=== PATIENT | female | born 1985 | race Caucasian/White ===

== ENCOUNTER 2018-05-07 11:58 | Observation (INO) ==
[2018-05-07] MEDS ORDERED: 0.9 % Sodium Chloride 1,000 ML IVC ONE ×2 (12:24→15:06)
--- NOTE | 2018-05-07 12:26 | Emergency Department Note ---
Disposition Clinical Impression: Syncope Qualifiers: Syncope type: unspecified Qualified Code(s): R55 - Syncope and collapse Disposition: Admitted As Inpatient Condition: Fair Referrals: Daiana Bower MD [Primary Care Provider] - Forms: ED Satisfaction Letter Syncope HPI - General Chief Complaint: ED Syncope Stated Complaint: Syncope Time Seen by Provider: 05/07/18 12:02 Source: EMS Limitations: no limitations Nursing Notes Reviewed: Yes Vital Signs Reviewed: Yes - History of Present Illness HPI Narrative: 32-year-old female presents emergency department after passing out at work. Patient states that she is feeling lightheaded today. Patient reports palpitations prior to the accident. Patient states that she was not standing up when it happened, but she was moving back and forth. Patient denies any fevers, chills, nausea, vomiting, cough, hemoptysis, sputum production. She does her port having symptoms of urinary frequency, urgency, dysuria, suprapubic abdominal pain. Patient states that she did lose consciousness but did not hit her head. Patient denies any slurred speech, numbness tingling, paresthesias of her upper and lower extremities. Patient denies any unilateral leg swelling, recent travel, history of blood clots, chest pain, chest pressure , chest tightness. Patient still feeling a little lightheaded now. Denies it feeling as if the room is spinning - Related Data Home Medications Medication Instructions Recorded Confirmed Bupropion HCl [Wellbutrin Xl] 300 mg PO DAILY 12/28/15 05/07/18 Aripiprazole [Abilify] 5 mg PO DAILY 05/07/18 05/07/18 Citalopram Hydrobromide 40 mg PO DAILY 05/07/18 05/07/18 [Citalopram HBr] Allergies Allergy/AdvReac Type Severity Reaction Status Date / Time levofloxacin [From Levaquin] AdvReac Hives Verified 05/07/18 16:06 All systems ED: reviewed and negative except as stated. Review of Systems: As Per HPI Constitutional: Denies: fever ENT ED: Denies: congestion Cardiovascular: Reports: syncope. Denies: chest pain, palpitations, orthopnea, edema Respiratory: Denies: cough, dyspnea, hemoptysis, sputum production Gastrointestinal: Reports: abdominal pain. Denies: nausea, vomiting Genitourinary: Reports: urgency, dysuria, frequency. Denies: hematuria Musculoskeletal: Denies: back pain Integumentary: Denies: rash, abrasion Neurological: Reports: weakness. 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 Absent: scleral icterus, conjunctival injection - ENT ENT exam: normal oropharynx, mucous membranes moist - Neck Neck exam: Present: full ROM, trachea midline - Chest Chest inspection: Present: normal inspection, symmetric chest wall rise - Respiratory Respiratory exam: Present: normal lung sounds bilaterally. Absent: respiratory distress - Cardiovascular Cardiovascular exam: Present: regular rate, normal rhythm, normal heart sounds - Abdominal Exam Abdominal exam: Present: soft, tenderness. Absent: distention, guarding, rebound, rigidity Abdominal tenderness: Present: suprapubic, mild - Extremities Exam Extremities exam: Present: normal capillary refill. Absent: calf tenderness - Back Exam Back exam: Present: full ROM. Absent: CVA tenderness (R), CVA tenderness (L) - Neurological Exam Neurological exam: Present: alert, oriented X3, CN II-XII intact, other (GCS 15 , normal finger to nose, no pronator drift.) - Psychiatric Psychiatric exam: Present: normal affect, normal mood - Skin Skin exam: Present: warm, dry, intact Course Vital Signs Temperature 98.4 F 05/07/18 12:01 Pulse Rate 82 05/07/18 12:01 Respiratory Rate 18 05/07/18 12:01 Blood Pressure 131/89 05/07/18 12:01 O2 Sat by Pulse Oximetry 97 05/07/18 12:01 Temperature 98.4 F 05/07/18 12:01 Pulse Rate 84 05/07/18 15:38 Respiratory Rate 18 05/07/18 15:38 Blood Pressure 128/78 05/07/18 15:38 O2 Sat by Pulse Oximetry 98 05/07/18 15:38 Oxygen Delivery Oxygen Delivery Room Air Syncope - [facility] Narrative Medical decision making narrative: 32-year-old female presents to the emergency department with concern for having a few sigmoid episodes. Patient still feeling lightheaded now. Reporting suprapubic tenderness upon physical exam's palpation as well as having urinary frequency, urgency, dysuria. Electrocardiogram is obtained and reveal any evidence of ischemia, hypertrophic myopathy, Kfxia-Efqjlsovx-Uypkq syndrome, Brugada syndrome, or any other arrhythmia. We will also obtain a chest x-ray, urinalysis, urine . Patient will be given a liter of fluids here as she is still complaining of having some symptoms. Patient was still complaining of having lightheadedness after administration of 1 L of fluids. We did a repeat electrocardiogram and she was reporting some more palpitations and chest tightness. Repeat EKG did not reveal any evidence of arrhythmia or ischemic changes that was noted in previous electrocardiogram. There were both the same. Was also given meclizine as well as another liter of fluids despite patient not having vertiginous like symptoms. Patient did not respond to this as well. Patient still having issues with sitting up and feeling lightheadedness. Patient reports needing a Holter monitor. Patient agreed to be excepted to the hospital for further observation as patient is unable to ambulate safely here in the emergency department. I spoke with the hospitalist who agreed to accept the patient for admission. I spoke with family patient at bedside they also agree with the plan. Patient hemodynamically stable at time of admission to the hospital. There was discussion of CT of head with both the patient, family member, hospitalist. This is not seen like a stroke. There are no focal neurologic abnormalities. Patient does not have continuous vertiginous-like symptoms that would be consistent with stroke. GCS 15. Vital Signs Temperature 98.4 F 05/07/18 12:01 Pulse Rate 82 05/07/18 12:01 Respiratory Rate 18 05/07/18 12:01 Blood Pressure 131/89 05/07/18 12:01 O2 Sat by Pulse Oximetry 97 05/07/18 12:01 Temperature 98.4 F 05/07/18 12:01 Pulse Rate 84 05/07/18 15:38 Respiratory Rate 18 05/07/18 15:38 Blood Pressure 128/78 05/07/18 15:38 O2 Sat by Pulse Oximetry 98 05/07/18 15:38 Oxygen Delivery Oxygen Delivery Room Air - Lab Data Lab Results 05/07/18 05/07/18 05/07/18 Range/Units 12:25 12:48 12:48 POC Glucose 81 (70-99) mg/dL Urine Color Yellow (Yellow) Urine Clarity Clear (Clear) Urine pH 7.0 (5.0-8.0) pH Units Ur Specific Anthony 1.018 (1.010-1.025) Urine Protein Negative (Neg-Trace) mg/dL Urine Glucose (UA) Normal (Normal) mg/dL Urine Ketones Negative (Negative) mg/dL Urine Blood Negative (Negative) Urine Nitrite Negative (Negative) Urine Bilirubin Negative (Negative) Urine Urobilinogen Normal (Normal) mg/dL Ur Leukocyte Esterase Negative (Negative) Ur Culture Indicated? NO (NO) Urine Test Negative (Negative) - EKG Data EKG attestation: Yes I reviewed and interpreted this EKG. EKG results narrative: 12:21 Ventricular rate 73 bpm, ND interval 143 ms, QRS duration 101 ms, QT 377 ms, QTC 403 ms, normal axis. Sinus rhythm with a ventricular rate 73 bpm. There is no evidence of hypertrophic cardiomyopathy, Brugada syndrome, naproxen White syndrome, or any other sinus arrhythmia. Signs of any ischemic ST changes. EKG #2 13:58 Ventricular rate 75 bpm, ND interval 157 ms, QRS duration 101, QT 400 ms, QTC 429 ms, normal axis. Sinus rhythm with a ventricular rate 75 bpm. There is no evidence of any ischemic ST changes on this later cardio gram. No evidence of Parkinson White syndrome, Brugada syndrome, hypertrophic Cardizem myopathy. No other arrhythmia. This EKG was compared to previous study performed today.
[2018-05-07 12:57] LABS: Bilirubin,Urine Negative (Negative); Blood,Urine Negative (Negative); Clarity,Urine Clear (Clear); Color,Urine Yellow (Yellow); Glucose,Urine (UA) Normal (Normal); Ketones,Urine Negative (Negative); Leukocyte Esterase,Urine Negative (Negative); Nitrite,Urine Negative (Negative); Protein,Urine Negative (Neg-Trace); Specific Gravity,Urine 1.018 (1.010-1.025); Urobilinogen,Urine Normal (Normal)
--- NOTE | 2018-05-07 17:16 | Emergency Department Note ---
Disposition Clinical Impression: Syncope Qualifiers: Syncope type: unspecified Qualified Code(s): R55 - Syncope and collapse Disposition: Admitted As Inpatient Condition: Fair General Adult HPI - General Chief complaint: ED Syncope Stated complaint: Syncope Time Seen by Provider: 05/07/18 12:02 Source: EMS Limitations: no limitations - History of Present Illness Pain Scale: 0 - Related Data Home Medications Medication Instructions Recorded Confirmed Bupropion HCl [Wellbutrin Xl] 300 mg PO DAILY 12/28/15 05/07/18 Aripiprazole [Abilify] 5 mg PO DAILY 05/07/18 05/07/18 Citalopram Hydrobromide 40 mg PO DAILY 05/07/18 05/07/18 [Citalopram HBr] Allergies Allergy/AdvReac Type Severity Reaction Status Date / Time levofloxacin [From Levaquin] AdvReac Hives Verified 05/07/18 16:06 Constitutional: Denies: fever ENT ED: Denies: congestion Cardiovascular: Reports: syncope. Denies: chest pain, palpitations, orthopnea, edema Respiratory: Denies: cough, dyspnea, hemoptysis, sputum production Gastrointestinal: Reports: abdominal pain. Denies: nausea, vomiting Genitourinary: Reports: urgency, dysuria, frequency. Denies: hematuria Musculoskeletal: Denies: back pain Integumentary: Denies: rash, abrasion Neurological: Reports: weakness. 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 - Social History Smoking Status: Never smoker Smokeless Tobacco Status: No Alcohol use: Reports: none Drug use: Reports: none Physical Exam - General Limitations: no limitations General appearance: alert, in no apparent distress Course Vital Signs Temperature 98.4 F 05/07/18 12:01 Pulse Rate 82 05/07/18 12:01 Respiratory Rate 18 05/07/18 12:01 Blood Pressure 131/89 05/07/18 12:01 O2 Sat by Pulse Oximetry 97 05/07/18 12:01 Temperature 98.2 F 05/07/18 17:22 Pulse Rate 78 05/07/18 17:22 Respiratory Rate 18 05/07/18 17:22 Blood Pressure 117/75 05/07/18 17:22 O2 Sat by Pulse Oximetry 95 05/07/18 17:22 Oxygen Delivery Oxygen Delivery Room Air Medical Decision Making - Lab Data Lab Results 05/07/18 05/07/18 05/07/18 Range/Units 12:25 12:48 12:48 POC Glucose 81 (70-99) mg/dL Urine Color Yellow (Yellow) Urine Clarity Clear (Clear) Urine pH 7.0 (5.0-8.0) pH Units Ur Specific [place] 1.018 (1.010-1.025) Urine Protein Negative (Neg-Trace) mg/dL Urine Glucose (UA) Normal (Normal) mg/dL Urine Ketones Negative (Negative) mg/dL Urine Blood Negative (Negative) Urine Nitrite Negative (Negative) Urine Bilirubin Negative (Negative) Urine Urobilinogen Normal (Normal) mg/dL Ur Leukocyte Esterase Negative (Negative) Ur Culture Indicated? NO (NO) Urine Test Negative (Negative) Attestation Statement - Attestation Attestation: I examined this patient and my medical decision-making was reviewed with the Resident Physician, Dr. Lamb. I agree with the documented findings, disposition and treatment plan as described except to the extent set forth below. Patient is a 32-year-old white female who presents to the emergency department brought from her place of employment after she sustained a syncopal episode. Patient states she has had prior episodes to in the past year with no formal extensive cardiac evaluation following them as they seemed to be consistent with vasovagal episodes. Patient woke up this morning feeling fine she has not had any recent illness, no recent fluid loss, asymptomatic and feeling fine when she went to work today. Patient states that she was sitting in a chair she just began feeling lightheaded and foggy mild nausea and this continued to gradually worsen and then she had a syncopal episode that was witnessed by her coworkers. Patient was helped to the floor there is no incident of trauma or injuries related to the syncope. Patient states she attempts to sit up quickly upon waking up and has sustained a second episode. Arrival to the ED patient is awake alert and oriented 4 GCS equals 15 and no focal neurologic deficits with clear speech. Patient denies any headaches, no chest pains pressure or heaviness, no palpitations, no shortness of breath, no nausea vomiting, no diaphoresis, no other associated symptoms. I agree with patient's physical exam findings as documented. Patient's EKG was unremarkable with no acute ischemia are concerning findings. Vital signs are stable. Patient received IV fluids in the emergency department and urinalysis urine. Was negative for any infection and no . Chest x-rays unremarkable. She had serial EKGs while in the ED with no changes and no recurrent symptoms. Each time we attempted to get the patient up to ambulate she reports being unable to due to severe recurrence of lightheadedness. Patient denies any room spinning sensation no worsening with head turning, no headaches or neurologic symptoms. Due to patient being unable to ambulate we discussed the case with hospitalist who accepted patient for admission for further evaluation and management of syncope with recurrent lightheadedness and inability to ambulate.
[2018-05-07] MEDS ORDERED: Naloxone 0.4 MG/ML INJ IVP PRN (17:46)
[2018-05-07 18:38] LABS: Magnesium 1.9 mg/dL (1.6-2.6); Phosphorous 2.6 mg/dL (2.7-4.5)
--- NOTE | 2018-05-07 18:40 | Internal Med History&Physical ---
Date of Encounter: 05/07/18 Time of Encounter: 17:55 Internal Medicine - H&P: HPI Chief complaint: Dizzenes Admitted From: Emergency Dept History of present illness: Ms. Beaver is a 32 year old female with past medical history of syncopal episode in the past. Patient stated that about 1 year ago she had episode of palpitation followed by syncopal episode, this had happened also 2 months ago. Patient denies any chest pain but she stated she had some labored breathing when she had palpitation. Today she was in her normal state of health she went to work, patient she was feeling so dizzy, she was trying to sit down when had episode of palpitation and she passed out she does not know for how long she passed out. Patient stated she wake up she was treated confused since she passed out again she wake up again and she passed out for third time. Patient denies any motor or sensory changes, patient denies any visual changes, patient is complaining of feeling so dizzy especially with standing or moving her head. Patient denies any seizure, no witnessed seizure by coworker. Currently patient continued to feel dizzy was moving her head or standing from sitting position. Her systolic blood pressure was at the low 90, heart rate was up to 120. Patient received 2 L fluid at emergency room. Patient denies any chest pain or shortness of breath now, patient denies any orthopnea or proximal nocturnal dyspnea. Patient denies any recent diarrhea or upper respiratory infection, patient stated she cut back on salt dramatically lately. Past Med Surg Social Fam HX - Past Medical History Source: patient Medical history: other (History of syncope) Additional medical history: heart palpiatations Psychiatric history: anxiety, depression, other - Past Surgical History Additional surgical history: D&C. Tonsils - Social History Smoking Status: Never smoker Smokeless Tobacco Status: No Alcohol use: none Drug use: none - Additional Family History Additional family history: Paternal grandfather has a history of stroke at age 80, son has a history of intracranial hypertension and congenital anomalous patient stated that she was told he does not have one of his ventricles in the brain Internal Medicine - H&P: Meds Bupropion HCl [Wellbutrin Xl] 300 mg PO DAILY 12/28/15 [History] Aripiprazole [Abilify] 5 mg PO DAILY 05/07/18 [History] Citalopram Hydrobromide [Citalopram HBr] 40 mg PO DAILY 05/07/18 [History] 3 Allergy/AdvReac Type Severity Reaction Status Date / Time levofloxacin [From Levaquin] AdvReac Hives Verified 05/07/18 16:06 All Systems PM: A 10-system review of systems was performed and is negative for pertinent findings except as documented above in the HPI. - Constitutional Vitals: Temp Pulse Resp BP Pulse Ox 98.2 F 78 18 117/75 95 05/07/18 17:22 05/07/18 17:22 05/07/18 17:22 05/07/18 17:22 05/07/18 17:22 General appearance: Present: A&O X 3, no acute distress, answers questions appropriately - Head Head exam: Present: atraumatic, normocephalic - Eye Eye exam: Present: PERRL, conjuntiva pink, sclera anicteric Pupils: Present: PERRL - Neck Neck exam general surgery: Present: supple, trachea midline. Absent: lymphadenopathy - Cardiovascular Cardiovascular exam: Present: RRR, +S1, +S2. Absent: diastolic murmur, gallop, rubs, systolic murmur - GI/Abdominal GI/Abdominal exam: Present: normal bowel sounds, soft, no peritoneal signs. Absent: distended, tenderness - Extremities Exam Extremities exam: Present: warm, radial pulses palpable and symmetrical. Absent : calf tenderness, cyanotic, pedal edema - Neurological Exam Neurological exam: Present: CN II-XII intact, oriented X3, no focal deficits. Absent: pronater drift, facial droop, speech deficit Additional comments: Patient continued to feel dizzy with moving her head or sitting position no nystagmus noted - Assessment and plan (1) Syncope Current Visit: Yes Status: Acute Qualifiers: Syncope type: unspecified Qualified Code(s): R55 - Syncope and collapse (2) Benign positional vertigo Current Visit: Yes Status: Acute Qualifiers: Laterality: bilateral Qualified Code(s): H81.13 - Benign paroxysmal vertigo , bilateral (3) Dizziness Current Visit: Yes Status: Acute (4) Sinus tachycardia Current Visit: Yes Status: Acute - Time Spent With Patient PlaN With her dizziness episode, family history of intracranial hypertension congenital anomalies of her son will check MRI brain, close monitoring patient condition, neuro check every 4 hour, gentle hydration, monitor orthostatic blood pressure. Add meclizine for possible benign positional Vertigo, check cardiac echo, continuous cardiac monitoring rule out any arrhythmia, will consult cardiology may consider event monitor if patient had recurrent symptoms, Will check electrolytes .Total time spent is greater than 50% in coordination of care (as documented) at patient's floor/unit and/or counseling patient .
[2018-05-07] MEDS: 0.9 % Sodium Chloride 1,000 ML IVC SCH (21:26)
[2018-05-07] MEDS: Aspirin 325 MG TABLET PO SCH (21:28)
[2018-05-08 01:15] LABS: Basophils % 0.4 %; Eosinophils # 0.1 K/mcL (0.0-0.6); Eosinophils % 0.9 %; Hematocrit 37.2 % (35.3-44.9); Hemoglobin 11.7 g/dL (11.5-15.4); Immature Granulocytes % 0.2 % (0-4); Lymphocytes # 3.8 K/mcL (0.6-4.6); Mean Corpuscular HGB Conc 31.5 g/dL (31.6-35.5); Mean Corpuscular Hemoglobin 27.2 pg (28.0-33.3); Mean Corpuscular Volume 86.5 fL (83.0-100.0); Mean Platelet Volume 9.8 fL (9.4-12.4); Monocytes # 0.6 K/mcL (0.0-1.3); Monocytes % 5.9 %; Neutrophils # 5.2 K/mcL (1.6-8.9); Platelet Count 285 K/mcL (140-400); Red Cell Distribution Width 13.9 % (11.5-14.5); Segmented Neutrophils % 53.6 %
[2018-05-08 01:40] LABS: BUN/Creatinine Ratio 14 (6-26); Blood Urea Nitrogen 9 mg/dL (6-20); Calcium 8.4 mg/dL (8.6-10.3); Carbon Dioxide 24 mEq/L (23-29); Chloride 109 mEq/L (98-107); Chol/HDL Ratio 3.9 (0-4.9); Cholesterol 142 mg/dL (< 200); Glucose 122 mg/dL (70-105); HDL Cholesterol 36 mg/dL (40-59); LDL Cholesterol,Calculated 88 mg/dL (0-99); Osmolality,Calculated 288 (280-300); Potassium 3.8 mEq/L (3.5-5.1); Sodium 139 mEq/L (136-145); Triglycerides 88 mg/dL (< 150); eGFR For African Americans > 60 (> 60); eGFR For Non-African Americans > 60 (> 60)
[2018-05-08] MEDS ORDERED: Acetaminophen 325 MG TABLET PO PRN (04:13)
[2018-05-08] MEDS: 0.9 % Sodium Chloride 1,000 ML IVC SCH (07:50)
[2018-05-08] MEDS: Aspirin 325 MG TABLET PO SCH (07:50)
--- NOTE | 2018-05-08 08:08 | Cardiology Consult Note ---
<Jim Florence R - Last Filed: 05/08/18 10:19> Date of Encounter: 05/08/18 Time of Encounter: 08:10 Assessment and Plan (1) Syncope Current Visit: Yes Status: Acute Per Cardiology: Troponins negative. Underwent brain MRI with no abnormal findings. No events noted on telemetry. Preliminary carotid duplex within normal limits. Orthostatics appear to be normal, however no heart rates documented. Echo showed: Impressions: LVEF 60-65%. Normal LV chamber size, wall thickness and function. Mild left ventricular diastolic dysfunction. Normal right ventricular structure and function. No evidence of pulmonary hypertension. No significant valvular dysfunction. Left Ventricular Wall Motion: Rest Echo Findings All wall segments showed normal motion. Will discuss and review with Dr. Burnett. On meclizine. On IVF. Qualifiers: Syncope type: unspecified Qualified Code(s): R55 - Syncope and collapse Discussion w patient/family: The assessment and plan as outlined above was discussed with the patient who expressed understanding and agreement. All questions were answered. Thank you for involving us in the care of your patient. Please call with any questions. History of Present Illness Consult date: 05/08/18 Consult reason: Syncope Chief complaint: Dizziness, Passing out History of present illness: Ms. Beaver is a 32 year old female with PMH anxiety and depression. Cardiology C/S for syncope. Patient reports past history of syncope on 2 separate occurrences about 5 years ago during . Reports did see cardiology and had Holter at that time. She reports now 3 further episodes over the past one year. She reports an episode about a year ago about 2 months ago and then prior to this hospitalization. She reports at the 3 events she felt dizzy/lightheaded, noticed palpitations with rapid heart rate, and sat down and eventually passed out. She denies any acute trauma from this most recent event. She denies any awareness of seizure-like activity. Denies any loss of bowel or bladder function. Reports during orthostatics today did express some dizziness upon standing. She does report she may been slightly dehydrated looking back at least 3 episodes. Denies any active bleeding or blood loss. Denies any chest pain, short of breath, fatigue. Denies any edema. Past Med Surg Social Fam HX - Past Medical History Attestation: Yes The following information was validated with the patient. Source: patient, old records reviewed Medical history: other (History of syncope) Additional medical history: heart palpiatations Psychiatric history: anxiety, depression, other - Past Surgical History Surgical History: non-contributory Additional surgical history: D&C. Tonsils - Social History Smoking Status: Never smoker Smokeless Tobacco Status: No Alcohol use: none Drug use: none - Family History Mother Living Status: Still Living Hx Family Endocrine Disorder: Yes (DM) Mother Maternal Grandmother Living Status: Cause of : Melanoma Hx Family Cancer: Yes Father Grandfather Living Status: Hx Family Cardiac Disorders: Yes (Stroke) Medications and Allergies Bupropion HCl [Wellbutrin Xl] 300 mg PO DAILY 12/28/15 [History] Aripiprazole [Abilify] 5 mg PO DAILY 05/07/18 [History] Citalopram Hydrobromide [Citalopram HBr] 40 mg PO DAILY 05/07/18 [History] Meclizine [Antivert] 25 mg PO TID PRN #60 tablet 05/08/18 [Rx] 3 Allergy/AdvReac Type Severity Reaction Status Date / Time levofloxacin [From Levaquin] AdvReac Hives Verified 05/07/18 16:06 All Systems Review: The remainder of the systems were reviewed and are negative - Cardiovascular Cardiovascular: as per HPI, palpitations, rapid heart rate, syncope Physical Examination Vital Signs, Last 4 Hours Temp Pulse Resp BP Pulse Ox 05/08/18 07:13 98.0 F 63 18 106/71 98 Selected Entries 05/08/18 09:15 Blood Pressure [Orthostatic Lying] 117/76 Blood Pressure [Orthostatic Sitting] 119/82 Blood Pressure [Orthostatic Standing] 128/83 General: Conversant, No Apparent Distress HEENT: Atraumatic, Normocephaly, Mucus Membranes Moist Neck: No JVD, Normal carotid pulses Cardiac: Reg Rate and Rhythm, Normal S1 and S2, No Murmur Lungs: Normal Breath Sounds, No Wheeze, Rales, Rhonchi Neuro: Alert and responsive, No focal deficits noted Abdomen: Soft, Non-Tender Skin: No rashes noted on visualized skin Musculoskeletal: No Chest Wall Tenderness Extremities: No Clubbing, No Cyanosis, No Edema, Normal Pulses Results 05/08/18 00:52 05/08/18 00:52 Lab Results Laboratory Tests 05/07/18 05/07/18 05/08/18 17:58 17:58 00:52 Magnesium 1.9 Troponin I < 0.03 < 0.03 ITS Impressions Chest X-Ray 05/07/18 12:23 IMPRESSION: No acute process. D/ / Twan Martinez MD / Twan Martinez MD Interpreting Provider: Twan Martinez MD Brain MRI 05/07/18 18:52 IMPRESSION: Normal MRI brain D/ / Diego Freire MD / Diego Ferire MD Interpreting Provider: Diego Freire MD Active Medications Acetaminophen (Tylenol) 650 mg PO Q6H PRN PRN Reason: Pain Stop: 11/07/18 04:14 Last Admin: 05/08/18 04:35 Dose: 650 mg Aspirin (Aspirin) 325 mg PO DAILY JIMMIE Stop: 11/06/18 19:16 Last Admin: 05/08/18 07:50 Dose: 325 mg Sodium Chloride (0.9 % Sodium Chloride) 1,000 mls @ 125 mls/hr IVC .Q8H JIMMIE Stop: 05/08/18 09:59 Last Admin: 05/08/18 07:50 Dose: 125 mls/hr Meclizine HCl (Antivert) 25 mg PO TID PRN PRN Reason: DIZZINESS Stop: 11/06/18 18:58 Naloxone HCl (Narcan) 0.4 mg IVP Q2MIN PRN PRN Reason: SEE COMMENTS Stop: 11/06/18 17:47 - Imaging and Cardiology Echo: report reviewed - EKG Interpretation EKG results cardiology: personally reviewed, normal ECG, sinus rhythm, no diagnostic ischemia, other (Telemetry reviewed with average heart rate 69 the past 24 hours, no pauses, no arrhythmias noted, sinus rhythm with PACs.) Consult Discharge Plan - Plan Instructions: Syncope (DC), Benign Paroxysmal Positional Vertigo (DC) Referrals: Daiana Bower MD [Primary Care Provider] - 05/13/18 2:15 pm (Sandee Cadena SUPPORT STAFF) <Bj Burnett - Last Filed: 05/08/18 16:20> Date of Encounter: 05/08/18 - Attending Attestation I have personally performed a face to face evaluation on this patient. I have reviewed and agree with the care plan. History and Exam by me shows: CC: I keep passing out; Pt reports has had multiple episodes of syncope, including three in the last year. She notes she has prodrome of dizziness, lightheadedness associated with palpitations, feeling her heart race. She reports five to fifteen seconds of symptoms before the room begins to go black, and she tries to lie down before she falls down. These events are not associated with loss of bowel or bladder function. They are not provoked by emotional upset, exercise or other known provocation. She has not had any further symptoms since admission. Pt reports has had previous echo and holter monitors, all reported normal. Last eval was over two years ago. ROS: Reviewed PMH: reviewed PE: Pt seen and examined, agree with findings as documented. IMP: 1. Syncope: unclear etiology, no obvious etiology so far this admit. Tele shows NSR, sinus serafin, otherwise normal. Pt is low risk for hospital discharge, would follow up with 48 hour holter, and if negative a two week event monitor as pt has significant prodrome before an event. 2. Anxiety/depression, on Wellbutrin, Abilify and Citalopram Assessment and Plan Discussion w patient/family: The assessment and plan as outlined above was discussed with the patient and/or family members who expressed understanding and agreement. All questions were answered. Thank you for involving us in the care of your patient. Please call with any questions. History of Present Illness History of present illness: Ms. Beaver is a 32 year old female All Systems Review: The remainder of the systems were reviewed and are negative Physical Examination Vital Signs, Last 4 Hours Temp Pulse Resp BP Pulse Ox 05/08/18 15:04 97.9 F 87 18 93/59 97 Results 05/08/18 00:52 05/08/18 00:52 Lab Results 05/07/18 05/07/18 05/08/18 17:58 17:58 00:52 WBC Hgb Hct Plt Count Sodium Potassium Chloride Carbon Dioxide BUN Creatinine Glucose Calcium Magnesium 1.9 Troponin I < 0.03 < 0.03 05/08/18 05/08/18 00:52 00:52 WBC 9.7 Hgb 11.7 Hct 37.2 Plt Count 285 Sodium 139 Potassium 3.8 Chloride 109 H Carbon Dioxide 24 BUN 9 Creatinine 0.65 Glucose 122 H Calcium 8.4 L Magnesium Troponin I
--- NOTE | 2018-05-08 11:14 | Event Note ---
Date of Encounter: 05/08/18 Time of Encounter: 11:15 - Cardiology Event Note Discussed and reviewed with Dr. Burnett, cardiology will sign off, reconsult as needed, follow up in outpatient setting arranged. Will evaluate at that time potential need for further Holter monitoring versus event monitoring.
--- NOTE | 2018-05-08 14:36 | Discharge Summary ---
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 Follow- up with family doctor in 2-3 week Date of Encounter: 05/08/18 Time of Encounter: 12:00 - Discharge Diagnosis (1) Syncope Priority: Primary Status: Acute Qualifiers: Syncope type: unspecified Qualified Code(s): R55 - Syncope and collapse (2) Benign positional vertigo Priority: Primary Status: Acute Qualifiers: Laterality: bilateral Qualified Code(s): H81.13 - Benign paroxysmal vertigo , bilateral (3) Dizziness Priority: Primary Status: Acute (4) Sinus tachycardia Priority: Secondary Status: Acute Hospital course: Ms. Beaver is a 32 year old female with past medical history of syncopal episode in the past. Patient stated that about 1 year ago she had episode of palpitation followed by syncopal episode, this had happened also 2 months ago. Patient denies any chest pain but she stated she had some labored breathing when she had palpitation. Today she was in her normal state of health she went to work, patient she was feeling so dizzy, she was trying to sit down when had episode of palpitation and she passed out she does not know for how long she passed out. Patient stated she wake up she was treated confused since she passed out again she wake up again and she passed out for third time. Patient denies any motor or sensory changes, patient denies any visual changes, patient is complaining of feeling so dizzy especially with standing or moving her head. Patient denies any seizure, no witnessed seizure by coworker. Currently patient continued to feel dizzy was moving her head or standing from sitting position. Her systolic blood pressure was at the low 90, heart rate was up to 120. Patient received 2 L fluid at emergency room. Patient denies any chest pain or shortness of breath now, patient denies any orthopnea or proximal nocturnal dyspnea. Patient denies any recent diarrhea or upper respiratory infection, patient stated she cut back on salt dramatically lately. Patient was admitted to the hospital, gentle hydration, close monitoring overnight, no arrhythmia noted on the monitor. No EKG changes, cardiac enzymes negative, cardiac echo normal ejection fraction, MRI brain WNL. Patient had marketed improvement with IV fluid as well as meclizine, cardiology evaluated the patient and recommended follow-up as an outpatient, recommended adequate hydration and normal salt intake. Counseling patient about follow-up with cardiology for further monitoring of her condition, patient discharged home in stable condition Discharge discussed with: patient - Time Spent with Patient Total time spent providing and/or coordinating discharge services: Less than 30 minutes - Discharge Medications Home Medications: Bupropion HCl [Wellbutrin Xl] 300 mg PO DAILY 12/28/15 [History] Aripiprazole [Abilify] 5 mg PO DAILY 05/07/18 [History] Citalopram Hydrobromide [Citalopram HBr] 40 mg PO DAILY 05/07/18 [History] Meclizine [Antivert] 25 mg PO TID PRN #60 tablet 05/08/18 [Rx] Allergies/Adverse Reactions: 3 Allergy/AdvReac Type Severity Reaction Status Date / Time levofloxacin [From Levaquin] AdvReac Hives Verified 05/07/18 16:06 Date of admission: 05/07/18 16:24 Primary care physician: Daiana Bower Consults: 05/07/18 18:50 Consult to Cardiology [CONS] Routine Comment: Consulting Provider: Cardiology Sherley Reason for Consult: Syncope Call Completed: Yes Discharging clinician: Esa Combs Anticipated date of discharge: 05/08/18 - Constitutional Vitals: Temp Pulse Resp BP Pulse Ox 99.0 F 86 19 117/79 99 05/08/18 12:01 05/08/18 12:01 05/08/18 12:01 05/08/18 12:01 05/08/18 12:01 General appearance: Present: A&O X 3, no acute distress, answers questions appropriately - Head Head exam: Present: atraumatic, normocephalic - Neck Neck exam general surgery: Present: supple, trachea midline. Absent: lymphadenopathy - Respiratory Respiratory exam: Present: CTAB. Absent: accessory muscle use, rales, rhonchi, wheezes - Cardiovascular Cardiovascular exam: Present: RRR, +S1, +S2. Absent: diastolic murmur, gallop, rubs, systolic murmur - GI/Abdominal GI/Abdominal exam: Present: normal bowel sounds, soft, no peritoneal signs. Absent: distended, tenderness - Extremities Exam Extremities exam: Present: warm, radial pulses palpable and symmetrical. Absent : calf tenderness, cyanotic, pedal edema - Patient Status Disposition: Home, Self-Care Condition: Fair Overall status at discharge: patient is progressing back to baseline - Discharge Instructions Follow Up With: Daiana Bower MD [Primary Care Provider] - - Diet and Activity Activity: resume usual activities as tolerated Diet: regular diet
[2018-05-08 16:15] VITALS: BP 110/73
--- NOTE | 2018-05-08 17:23 | Electrocardiograph Report ---
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
--- NOTE | 2018-05-08 17:37 | Electrocardiograph Report ---
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
== END 2018-05-08 17:08 | disposition home or self-care (01) ==
LOC: 3BNU 11:58 → EMEROO 11:58 → 3BNU 17:17
PROVIDERS: ADMIT Family Medicine; ATTEND Family Medicine

== ENCOUNTER 2018-05-12 16:33 | Observation (INO) ==
[2018-05-12] MEDS ORDERED: Ibuprofen 600 MG TABLET PO ONE (16:48)
[2018-05-12] MEDS ORDERED: 0.9 % Sodium Chloride 500 ML IVC ONE (17:19)
--- NOTE | 2018-05-12 17:53 | Emergency Department Note ---
Disposition Clinical Impression: Syncope Qualifiers: Syncope type: unspecified Qualified Code(s): R55 - Syncope and collapse Disposition: Admitted As Inpatient Condition: Good Referrals: Daiana Bower MD [Primary Care Provider] - Time of Disposition: 18:40 Dizziness HPI - General Chief Complaint: ED Syncope Stated Complaint: syncope Time Seen by Provider: 05/12/18 16:47 Source: patient Limitations: no limitations Nursing Notes Reviewed: Yes Vital Signs Reviewed: Yes - History of Present Illness HPI Narrative: Ms. Beaver is a 32 year old female with past medical history of anxiety and depression who presented to the ED for recurrent syncopal episodes. This has been happening for about 1 year but worsening over the past 1-2 months. The episodes seem to occur randomly when she is in standing or sitting position. She has passed out twice today and this is her second visit to the ED today. At times she has dizziness and palpitations with the episodes but not always. She tells me her BP is normally 120/80 but when she checks it after syncopal episodes it is typically 90/60 and heart rate in 120s. Patient denies any chest pain or tightness but does have some labored breathing along with the palpitations. She denies orthopnea, paroxysmal nocturnal dyspnea, or seizure- like activity. No recent infections, nausea, vomiting or diarrhea. Patient denies any sensorimotor dysfunction or visual changes. She was hospitalized at our facility last week for the same issue and there were no changes on EKG on telemetry, cardiac enzymes were negative, cardiac echo showed normal LVEF of 60-65% and MRI brain was normal. Cardiology saw her during this hospitalization and recommended outpatient follow-up - Related Data Home Medications Medication Instructions Recorded Confirmed Bupropion HCl [Wellbutrin Xl] 300 mg PO DAILY 12/28/15 05/07/18 Aripiprazole [Abilify] 5 mg PO DAILY 05/07/18 05/07/18 Citalopram Hydrobromide 40 mg PO DAILY 05/07/18 05/07/18 [Citalopram HBr] Previous Rx's Medication Instructions Recorded Meclizine [Antivert] 25 mg PO TID PRN #60 tablet 05/08/18 Allergies Allergy/AdvReac Type Severity Reaction Status Date / Time levofloxacin [From Levaquin] AdvReac Hives Verified 05/12/18 14:29 Constitutional: Denies: fever, chills, weakness, weight change Eyes: Denies: vision change ENT ED: Denies: ear pain, throat pain, hearing loss, congestion, dysphagia Cardiovascular: Reports: edema (She has noticed some mile edema in her ankle over the past several days). Denies: chest pain, palpitations, orthopnea, paroxysmal nocturnal dyspnea Respiratory: Denies: cough, wheezes, hemoptysis, stridor, sputum production Gastrointestinal: Denies: abdominal pain, nausea, vomiting, diarrhea, hematemesis, melena, hematochezia Genitourinary: Denies: urgency, dysuria, frequency, hematuria, abnormal menses Musculoskeletal: Denies: back pain, neck pain Integumentary: Denies: rash Neurological: Reports: headache (4/10 headache following second syncopal episode today), paresthesias (Transient tingling in b/l fingertips following syncopal episodes ). 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 Absent: scleral icterus, nystagmus, miosis, mydriasis - ENT ENT exam: normal exam - Neck Neck exam: Present: trachea midline. Absent: tenderness, meningismus, lymphadenopathy, thyromegaly - Chest Chest inspection: Present: normal inspection - Respiratory Respiratory exam: Present: normal lung sounds bilaterally - Cardiovascular Cardiovascular exam: Present: regular rate, normal rhythm, tachycardia (HR observed to increase from 86 to 105 with the patient sitting still in hospital bed). Absent: irregular rhythm, systolic murmur, diastolic murmur, rubs, gallop - Abdominal Exam Abdominal exam: Present: soft, Non-Tender, normal bowel sounds. Absent: guarding, rebound, rigidity - Extremities Exam Extremities exam: Present: pedal edema (Trace bilateral non-pitting edema) - Neurological Exam Neurological exam: Present: alert, oriented X3, CN II-XII intact Course Course Narrative: Patient was seen and examined at bedside in the emergency department. She is tearful stating, "why does this keep happening to me?" Initial examination including neurologic exam is normal - Consultations Consultation #1: Discussed case with Dr. Adhikari who says cardiology willing to see patient in hospital Time: 18:00 Vital Signs Temperature 98.4 F 05/12/18 16:49 Pulse Rate 89 05/12/18 16:49 Respiratory Rate 18 05/12/18 16:49 Blood Pressure 130/82 05/12/18 16:49 O2 Sat by Pulse Oximetry 99 05/12/18 16:49 Temperature 98.4 F 05/12/18 16:49 Pulse Rate 89 05/12/18 16:49 Respiratory Rate 18 05/12/18 16:49 Blood Pressure 130/82 05/12/18 16:49 O2 Sat by Pulse Oximetry 99 05/12/18 16:49 Oxygen Delivery Oxygen Delivery Room Air Dizziness - MDM Narrative Medical decision making narrative: Prior hospital notes and labs/imaging reviewed. Neurologic etiology less likely given her recent normal MRI and lack of seizure-like activity or sensorimotor dysfunction. She has had multiple normal cardiac studies and cardiology has recommended outpatient follow-up during her most recent hospital stay however patient is distraught due to the recurrence of her syncopal episodes and seizures that if she goes home she will continues to pass out I spoke with the on-call gravel truck driver who is happy to provide consultation if the patient is admitted. We have paged hospitalist and are awaiting a call back Discussed case with Dr. Quijano who will accept patient to hospitalist service. I will place consult to cardiology - Medical Records Medical records reviewed: Yes I reviewed the patient's medical records. - Lab Data Lab results reviewed: Yes I reviewed the patient's lab results. - Radiology Data Radiology results reviewed: Yes I reviewed the patient's radiology results. - EKG Data EKG attestation: Yes I reviewed and interpreted this EKG. EKG results narrative: EKG reviewed: Normal sinus rhythm, rate 83 bpm, FL interval 146 ms, QRS 93 ms, QT 367 ms, QTC 407 ms, no ST elevation or depression, no T-wave abnormalities
--- NOTE | 2018-05-12 19:06 | Emergency Department Note ---
Disposition Clinical Impression: Syncope Qualifiers: Syncope type: unspecified Qualified Code(s): R55 - Syncope and collapse Disposition: Admitted As Inpatient Condition: Good Referrals: Daiana Bower MD [Primary Care Provider] - Forms: ED Satisfaction Letter Syncope HPI - General Chief Complaint: ED Syncope Stated Complaint: syncope Time Seen by Provider: 05/12/18 16:47 Source: patient Limitations: no limitations - Related Data Home Medications Medication Instructions Recorded Confirmed Bupropion HCl [Wellbutrin Xl] 300 mg PO DAILY 12/28/15 05/07/18 Aripiprazole [Abilify] 5 mg PO DAILY 05/07/18 05/07/18 Citalopram Hydrobromide 40 mg PO DAILY 05/07/18 05/07/18 [Citalopram HBr] Previous Rx's Medication Instructions Recorded Meclizine [Antivert] 25 mg PO TID PRN #60 tablet 05/08/18 Allergies Allergy/AdvReac Type Severity Reaction Status Date / Time levofloxacin [From Levaquin] AdvReac Hives Verified 05/12/18 14:29 Constitutional: Denies: fever, chills, weakness, weight change Eyes: Denies: vision change ENT ED: Denies: ear pain, throat pain, hearing loss, congestion, dysphagia Cardiovascular: Reports: edema (She has noticed some mile edema in her ankle over the past several days). Denies: chest pain, palpitations, orthopnea, paroxysmal nocturnal dyspnea Respiratory: Denies: cough, wheezes, hemoptysis, stridor, sputum production Gastrointestinal: Denies: abdominal pain, nausea, vomiting, diarrhea, hematemesis, melena, hematochezia Genitourinary: Denies: urgency, dysuria, frequency, hematuria, abnormal menses Musculoskeletal: Denies: back pain, neck pain Integumentary: Denies: rash Neurological: Reports: headache (4/10 headache following second syncopal episode today), paresthesias (Transient tingling in b/l fingertips following syncopal episodes ). Denies: weakness Psychiatric: Reports: anxiety, depression Endocrine: Denies: polydipsia, polyuria Hematological/Lymphatic: Denies: easy bleeding, easy bruising Past Medical History - Past Medical History Medical history: Reports: syncope, other Surgical history: Reports: non-contributory Psychiatric history: Reports: anxiety, depression, other [employer] history: Reports: other - Social History Smoking Status: Never smoker Smokeless Tobacco Status: No Alcohol use: Reports: none Drug use: Reports: none Physical Exam - General Limitations: no limitations General appearance: alert, in no apparent distress Course Vital Signs Temperature 98.4 F 05/12/18 16:49 Pulse Rate 89 05/12/18 16:49 Respiratory Rate 18 05/12/18 16:49 Blood Pressure 130/82 05/12/18 16:49 O2 Sat by Pulse Oximetry 99 05/12/18 16:49 Temperature 98.4 F 05/12/18 16:49 Pulse Rate 76 05/12/18 18:03 Respiratory Rate 18 05/12/18 18:03 Blood Pressure 122/76 05/12/18 18:03 O2 Sat by Pulse Oximetry 98 05/12/18 18:03 Oxygen Delivery Oxygen Delivery Room Air Attestation Statement - Attestation Attestation: I examined this patient and my medical decision-making was reviewed with the Resident Physician. I agree with the documented findings, disposition and treatment plan as described except to the extent set forth below. 32-year-old with recurrent syncope. Patient's had 2 episodes of syncope last week was hospitalized in his had increasing numbers of syncopal episodes. Patient was seen in the hospital here earlier. She was trying to go home and had a second syncopal episode. Physical exam she is awake and alert neuro is nonfocal. We did repeat her EKG which was normal. Patient will be admitted.
[2018-05-12] MEDS ORDERED: Acetaminophen 325 MG TABLET PO PRN (19:51)
[2018-05-12] MEDS ORDERED: Naloxone 0.4 MG/ML INJ IVP PRN (19:51)
[2018-05-12] MEDS ORDERED: *HR* Heparin 5,000 UNIT/ML VIAL SQ ONE (19:53)
--- NOTE | 2018-05-12 20:01 | Internal Med History&Physical ---
Date of Encounter: 05/12/18 Time of Encounter: 19:25 Internal Medicine - H&P: HPI Chief complaint: syncope Admitted From: Emergency Dept Plans for Post Hospital Care: Home History of present illness: Ms. Beaver is a 32 year old female who presents to the ER today after experiencing a syncopal event while working today. 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 She states that before she passed out, she felt a fluttering and racing heart rate in her chest. Then she recalls waking on the floor after having sustained a syncopal event. Patient states that the episode was witnessed by her coworkers and that there was no evidence of seizure activity. She does not recall how long the episode lasted but states she was likely out for about 1 minute or so. She was hospitalized last week for syncope and had cardiac workup performed. She is due to see Cardiology as an outpatient, but she has not not yet followed up. She started having syncopal spells within the last year. Prior to that, she has never had syncope other than when she was several years ago. Workup at that time was negative. She has not had any kind of electrophysiologic testing and/or workup for dysrhythmia. She denies any chest pain or exertional dyspnea. She feels fine otherwise. She denies any illicit drug use or [id number] medication use. Her only medications include antidepressants for anxiety. These are Citalopram and Wellbutrin. She denies any panic attacks or worsening anxiety. I am concerned that these medications may lead to some QT prolongation. Therefore, I'm going to hold them for now until we can confirm with pharmacy. She and her voiced understanding. Past Med Surg Social Fam HX - Past Medical History Attestation: Yes The following information was validated with the patient. Source: patient, old records reviewed, obtained from family Medical history: syncope Additional medical history: heart palpiatations Psychiatric history: anxiety, depression, other - Past Surgical History Additional surgical history: D&C. Tonsillectomy - Social History Smoking Status: Never smoker Smokeless Tobacco Status: No Alcohol use: none Drug use: none Occupational status: employed Current living situation: Home, With Family Activity Level: Independent ambulation Recent Out of Country Travel Within the Last 8 Weeks: No - Family History Mother Living Status: Still Living Hx Family Endocrine Disorder: Yes (DM) Mother Maternal Grandmother Living Status: Hx Family Cancer: Yes Father Grandfather Living Status: Hx Family Cardiac Disorders: Yes (Stroke) Internal Medicine - H&P: Meds Bupropion HCl [Wellbutrin Xl] 300 mg PO DAILY 12/28/15 [History] Aripiprazole [Abilify] 5 mg PO DAILY 05/07/18 [History] Citalopram Hydrobromide [Citalopram HBr] 40 mg PO DAILY 05/07/18 [History] Aspirin Enteric Coated [Aspirin EC] 81 mg PO DAILY 05/12/18 [History] 3 Allergy/AdvReac Type Severity Reaction Status Date / Time levofloxacin [From [facility]] AdvReac Hives Verified 05/12/18 19:08 - Constitutional Constitutional: no chills, no fatigue, no fever(s), no night sweats - EENT Eyes: no blurry vision, no change in vision Ears: no ear pain, no tinnitus Nose, mouth and throat: no nasal congestion, no nasal discharge, no sinus pressure, no sore throat - Cardiovascular Cardiovascular ROS IM: lightheadedness, palpitations, syncope, no chest pain, no dyspnea, no dyspnea on exertion, no orthopnea, no paroxysmal nocturnal dyspnea - Respiratory Respiratory: no dyspnea, no dyspnea on exertion, no wheezing, no chest congestion, no excessive phlegm production, no change in phlegm color - Gastrointestinal Gastrointestinal: no abdominal pain, no diarrhea, no hematemesis, no hematochezia, no melena, no nausea, no vomiting - Genitourinary Genitourinary: no dysuria, no flank pain, no hematuria - Musculoskeletal Musculoskeletal ROS IM: no back pain, no joint swelling - Integumentary Integumentary IM: no rash, no jaundice - Neurological Neurological ROS: dizziness, no confusion, no convulsions, no disequilibrium, no focal weakness, no frequent falls, no headache(s), no numbness, no vertigo, no weakness - Psychiatric Psychiatric: anxiety, no depression, no mood swings, no panic attacks, no paranoia - Endocrine Endocrine IM: no cold intolerance, no heat intolerance, no polydipsia, no polyphagia, no polyuria - Hematologic/Lymphatic Hematologic/Lymphatic: no easy bruising, no lymphadenopathy - Allergic/Immunologic Allergic/Immunologic: no wheezing, no GI upset with certain foods - Constitutional Vitals: Temp Pulse Resp BP Pulse Ox 98.4 F 95 18 138/83 95 05/12/18 16:49 05/12/18 19:18 05/12/18 19:18 05/12/18 19:18 05/12/18 19:18 General appearance: Present: cooperative, A&O X 3, pleasant, no acute distress, answers questions appropriately - Head Head exam: Present: atraumatic, normal inspection - Eye Eye exam: Present: EOMI, PERRL. Absent: scleral icterus Pupils: Present: normal accommodation - ENT ENT exam: Present: mucous membranes dry, normal exam, normal oropharynx - Neck Neck exam general surgery: Present: full ROM, supple. Absent: lymphadenopathy, tenderness, nuchal rigidity, thyromegaly - Expanded Neck Exam Neck exam: Absent: carotid bruit - Respiratory Respiratory exam: Present: CTAB. Absent: chest wall tenderness, rales, respiratory distress, rhonchi, wheezes - Cardiovascular Cardiovascular exam: Present: RRR, +S1, +S2. Absent: diastolic murmur, systolic murmur - GI/Abdominal GI/Abdominal exam: Present: normal bowel sounds, soft. Absent: guarding, hepatomegaly, mass, rebound, splenomegaly, tenderness - Extremities Exam Extremities exam: Present: calf tenderness, full ROM, normal capillary refill, warm, radial pulses palpable and symmetrical. Absent: joint swelling, pedal edema, tenderness - Back Exam Back exam: Present: normal inspection. Absent: CVA tenderness (L), CVA tenderness (R) - Neurological Exam Neurological exam: Present: alert, CN II-XII intact, oriented X3, no focal deficits - Psychiatric Psychiatric exam: Present: normal affect, normal mood - Skin Skin exam: Present: dry, warm. Absent: rash Internal Med - H&P Results - EKG Data -: EKG Interpreted by Myself EKG shows normal: sinus rhythm Rate: normal - EKG Data Prior EKG available for review: no EKG comments: 05/12/18 20:06 WNL - Diagnostic Studies Chest x-ray Additional comments: No CXR obtained today in ER; reviewed last week's CXR -- negative - Assessment and plan (1) Syncope Current Visit: Yes Status: Acute Assessment and plan: 1. Based upon history, I suspect patient will need work-up for rhythm related etiology. She will likely need Holter Monitor, Event Monitor, and/or EPS study as outpatient, but I'll defer to cardiology. 2. Will trend troponins and EKG's. 3. Patient had ECHO and Carotid Dopplers last week -- normal. 4. I do not feel cardiac stress testing is warranted at this time, but this can be done outpatient if necessary. 5. Will monitor glucose levels for hypoglycemia/ 6. Will order test as well. 7. Hold anti-depressants until medication side effects can be confirmed with pharmacy. 8. Cardiology already consulted through ER. Qualifiers: Syncope type: unspecified Qualified Code(s): R55 - Syncope and collapse (2) Anxiety Current Visit: Yes Status: Chronic Assessment and plan: 1. Hold home medications for now. 2. May need to find alternatives if side effects may be exacerbating syncope. (3) DVT prophylaxis Current Visit: Yes Status: Acute Assessment and plan: 1. Heparin SQ.
[2018-05-12 20:48] LABS: INR 1.2; Prothrombin Time 13.5 Seconds (9.4-12.1)
[2018-05-12 20:51] LABS: Activated Partial Thrombo Time 41.1 Seconds (26.0-36.0)
[2018-05-13 03:43] LABS: Basophils % 0.4 %; Eosinophils # 0.1 K/mcL (0.0-0.6); Eosinophils % 0.8 %; Hematocrit 38.8 % (35.3-44.9); Hemoglobin 12.2 g/dL (11.5-15.4); Immature Granulocytes % 0.2 % (0-4); Lymphocytes # 3.4 K/mcL (0.6-4.6); Lymphocytes % 34.9 %; Mean Corpuscular HGB Conc 31.4 g/dL (31.6-35.5); Mean Corpuscular Volume 85.8 fL (83.0-100.0); Monocytes # 0.7 K/mcL (0.0-1.3); Neutrophils # 5.5 K/mcL (1.6-8.9); Platelet Count 294 K/mcL (140-400); Red Blood Count 4.52 M/mcL (3.82-4.97); Red Cell Distribution Width 13.9 % (11.5-14.5); Segmented Neutrophils % 56.7 %
[2018-05-13 03:51] LABS: Alanine Aminotransferase 12 Units/L (7-52); Albumin 3.7 g/dL (3.5-5.7); Albumin/Globulin Ratio 1.5 (1.1-2.2); Alkaline Phosphatase 61 Units/L (34-104); Aspartate Amino Transferase 12 Units/L (13-39); BUN/Creatinine Ratio 19 (6-26); Bilirubin,Total 0.3 mg/dL (0.3-1.0); Blood Urea Nitrogen 12 mg/dL (6-20); Calcium 8.9 mg/dL (8.6-10.3); Carbon Dioxide 24 mEq/L (23-29); Chloride 106 mEq/L (98-107); Globulin 2.5 g/dL (2.4-3.5); Glucose 120 mg/dL (70-105); Magnesium 1.8 mg/dL (1.6-2.6); Osmolality,Calculated 291 (280-300); Phosphorous 3.1 mg/dL (2.7-4.5); Potassium 3.4 mEq/L (3.5-5.1); Sodium 140 mEq/L (136-145); Total Protein 6.2 g/dL (6.4-8.9); eGFR For African Americans > 60 (> 60); eGFR For Non-African Americans > 60 (> 60)
[2018-05-13] MEDS ORDERED: Aspirin Enteric Coated 81 MG Tablet PO SCH (09:00)
--- NOTE | 2018-05-13 09:45 | Cardiology Consult Note ---
<Stefany Figueroa - Last Filed: 05/13/18 09:58> Date of Encounter: 05/13/18 Time of Encounter: 09:30 Assessment and Plan (1) Syncope Current Visit: Yes Status: Chronic Per cardiology: -Known history of syncope. -Reports 2 episodes yesterday. -Recent TTE 05/2018 LVEF 60-65%, mild diastolic dysfunction, no segmental wall motion abnormalities. -Recent carotid duplex and brain MRI unremarkable. -Reports prodromal symptoms of palpitations/fluttering. -Has not sustained any injuries from episodes. -No loss of bowel/bladder. -Previously seen by cardiology who stated consider event monitor. -Discussed and reviewed with , recommend event monitor at discharge. -Educated to avoid caffeine/ETOH. Educated to stay well hydrated. Educated to change positions slowly. -Recommend no driving until after seen in outpatient setting by cardiology, patient states understanding. Qualifiers: Syncope type: unspecified Qualified Code(s): R55 - Syncope and collapse (2) Palpitations Current Visit: Yes Status: Acute Per cardiology: -Reports palpitations prior to syncopal events. -Reports had two episodes last night of palpitations. -Telemetry reviewed with ST noted, HR 120s. -No arrythmias noted. -Recommend event monitor at discharge. Discussion w patient/family: The assessment and plan as outlined above was discussed with the patient who expressed understanding and agreement. All questions were answered. Thank you for involving us in the care of your patient. Please call with any questions. Discussed and reviewed with . History of Present Illness Consult date: 05/12/18 Requesting physician: Yandel Hayes Consult reason: recurrent syncope Chief complaint: syncope History of present illness: Ms. Beaver is a 32 year old female with a relevant past medical history of anxiety, depression, syncope who presented to [facility] with complaints of syncope x2 episodes yesterday, while working. 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 Patient states she went to ER yesterday twice for episodes. Patient states first syncopal episode was 6 years ago while . Patient reports has had multiple episodes since. Patient states they are getting more frequent. Patient reports prior to passing out, she feels palpitations/fluttering and then she states "everything goes black." Patient reports has not sustained any injuries from episodes. Patient denies loss of bowel/bladder. Patient reports she tries to drink plenty of water, however states she drinks multiple caffeinated beverages per day. Past Med Surg Social Fam HX - Past Medical History Attestation: Yes The following information was validated with the patient. Source: patient, old records reviewed Medical history: syncope Additional medical history: heart palpiatations Psychiatric history: anxiety, depression, other - Past Surgical History Surgical History: non-contributory Additional surgical history: D&C. Tonsillectomy - Social History Smoking Status: Never smoker Smokeless Tobacco Status: No Alcohol use: none Drug use: none - Family History Mother Living Status: Still Living Hx Family Endocrine Disorder: Yes (DM) Mother Maternal Grandmother Living Status: Hx Family Cancer: Yes Father Grandfather Living Status: Hx Family Cardiac Disorders: Yes (Stroke) Medications and Allergies Bupropion HCl [Wellbutrin Xl] 300 mg PO DAILY 12/28/15 [History] Aripiprazole [Abilify] 5 mg PO DAILY 05/07/18 [History] Citalopram Hydrobromide [Citalopram HBr] 40 mg PO DAILY 05/07/18 [History] Aspirin Enteric Coated [Aspirin EC] 81 mg PO DAILY 05/12/18 [History] 3 Allergy/AdvReac Type Severity Reaction Status Date / Time levofloxacin [From Levaquin] AdvReac Hives Verified 05/12/18 19:08 All Systems Review: The remainder of the systems were reviewed and are negative - Cardiovascular Cardiovascular: as per HPI, palpitations, syncope Physical Examination Vital Signs, Last 4 Hours Temp Pulse Resp BP Pulse Ox 05/13/18 06:57 98.0 F 64 18 126/57 99 General: Conversant, No Apparent Distress HEENT: Atraumatic, Normocephaly, Mucus Membranes Moist Neck: No JVD, Normal carotid pulses Cardiac: Reg Rate and Rhythm, Normal S1 and S2, No Murmur Lungs: Normal Breath Sounds, No Wheeze, Rales, Rhonchi Neuro: Alert and responsive, No focal deficits noted Abdomen: Soft, Non-Tender Skin: No rashes noted on visualized skin Musculoskeletal: No Chest Wall Tenderness Extremities: No Clubbing, No Cyanosis, No Edema, Normal Pulses Results 05/13/18 02:46 05/13/18 02:46 Lab Results Active Medications Acetaminophen (Tylenol) 650 mg PO Q6HR PRN PRN Reason: Mild Pain/Fever Stop: 11/11/18 19:52 Last Admin: 05/13/18 06:47 Dose: 650 mg Aspirin (Aspirin Ec) 81 mg PO DAILY JIMMIE Stop: 11/12/18 09:01 Last Admin: 05/13/18 09:16 Dose: 81 mg Naloxone HCl (Narcan) 0.4 mg IVP Q2MIN PRN PRN Reason: SEE COMMENTS Stop: 11/11/18 19:52 Potassium Chloride (Potassium Chloride) 40 meq PO ONCE ONE Stop: 05/13/18 10:01 Laboratory Tests 05/12/18 05/13/18 05/13/18 20:16 02:46 02:46 Hgb 12.2 Creatinine Troponin I < 0.03 < 0.03 05/13/18 05/13/18 02:46 09:10 Hgb Creatinine 0.64 Troponin I < 0.03 - Imaging and Cardiology Chest Xray: report reviewed Echo: report reviewed - EKG Interpretation EKG results cardiology: personally reviewed (ECG with SR, HR 83. QT 367/ QTc 407ms.), other (Telemetry reviewed with average HR previous 12 hours noted to be 79, SR. Rare PVCs noted.) Consult Discharge Plan - Plan Instructions: Palpitations (DC), Syncope (DC), Anxiety (DC) Additional Instructions: Please follow up with whoever prescribes or Celexa, Wellbutrin and Abilify for medication review as these medications can cause lightheadedness/dizziness/ syncope. Referrals: Daiana Bower MD [Primary Care Provider] - 06/01/18 9:15 am (Please call for follow-up appt within 1-2 weeks ) <Mere Velasquez - Last Filed: 05/13/18 11:30> Date of Encounter: 05/13/18 - Attending Attestation I have personally performed a face to face evaluation on this patient. I have reviewed and agree with the care plan. History and Exam by me shows: 32 YOF with multiple episodes of syncope with long prodromes while sitting and no incontinence or post ictal. Possible vasovagal syncope , event last night without any abnormalities on telemetry. Will follow up as an OP with cardiology and obtain an event. Patient advised not to drive until further testing. Assessment and Plan Discussion w patient/family: The assessment and plan as outlined above was discussed with the patient and/or family members who expressed understanding and agreement. All questions were answered. Thank you for involving us in the care of your patient. Please call with any questions. History of Present Illness History of present illness: Ms. Beaver is a 32 year old female All Systems Review: The remainder of the systems were reviewed and are negative Physical Examination Vital Signs, Last 4 Hours Temp Pulse Resp BP Pulse Ox 05/13/18 10:45 98.3 F 81 17 105/66 95 Results 05/13/18 02:46 05/13/18 02:46 Lab Results 05/12/18 05/12/18 05/13/18 20:16 20:16 02:46 WBC Hgb Hct Plt Count INR 1.2 APTT 41.1 H Sodium Potassium Chloride Carbon Dioxide BUN Creatinine Glucose Calcium Magnesium Total Bilirubin AST ALT Alkaline Phosphatase Troponin I < 0.03 < 0.03 05/13/18 05/13/18 05/13/18 02:46 02:46 09:10 WBC 9.6 Hgb 12.2 Hct 38.8 Plt Count 294 INR APTT Sodium 140 Potassium 3.4 L Chloride 106 Carbon Dioxide 24 BUN 12 Creatinine 0.64 Glucose 120 H Calcium 8.9 Magnesium 1.8 Total Bilirubin 0.3 AST 12 L ALT 12 Alkaline Phosphatase 61 Troponin I < 0.03
--- NOTE | 2018-05-13 10:40 | Discharge Summary ---
Orders not resulted at time of discharge: Pending orders 05/13/18 00:33 ECG 12 lead ECG [ECG] Stat 05/13/18 10:34 ECG event monitor 4 weeks [ECG] Routine Date of Encounter: 05/13/18 Time of Encounter: 10:39 - Discharge Diagnosis (1) Syncope Priority: Primary Status: Chronic Assessment and Plan: presented after 2 episodes of syncope with associated palpitations. Has known history of syncope. TTE 05/2018 TTE with EF 60-65%, mild diastolic dysfunction, no segmental wall motion abnormalities. Recent Carotid duplex and brain MRI unremarkable. Event monitor at discharge. Per Cardiology, patient was educated to avoid caffeine/ETOH, stay well hydrated, change positions slowly and no driving until after seen in outpatient setting by cardiology. Has follow-up with Cardiology on day of discharge Qualifiers: Syncope type: unspecified Qualified Code(s): R55 - Syncope and collapse (2) Anxiety Priority: Primary Status: Chronic Assessment and Plan: per hx. Cont home medications however recommend follow-up with outpatient Psychiatrist for medication review as medications could be contributing to syncopal events Hospital course: Please see assessment and plan for hospital course Discharge discussed with: patient (Seen and examined at bedside, patient is new to me. Information obtained from chart review and patient report. Patient says she feels better but overall is frustrated with no causes been found for syncope. Denies palpitations, no lightheadedness or dizziness all my exam. Discussed case with Dr. Velasquez and patient is to have an event monitor before discharge and she has follow-up with cardiology at 3 PM) - Time Spent with Patient Total time spent providing and/or coordinating discharge services: - Discharge Medications Home Medications: Bupropion HCl [Wellbutrin Xl] 300 mg PO DAILY 12/28/15 [History] Aripiprazole [Abilify] 5 mg PO DAILY 05/07/18 [History] Citalopram Hydrobromide [Citalopram HBr] 40 mg PO DAILY 05/07/18 [History] Aspirin Enteric Coated [Aspirin EC] 81 mg PO DAILY 05/12/18 [History] Allergies/Adverse Reactions: 3 Allergy/AdvReac Type Severity Reaction Status Date / Time levofloxacin [From Levaquin] AdvReac Hives Verified 05/12/18 19:08 Date of admission: 05/12/18 20:11 Primary care physician: Daiana Bower Discharging clinician: Chanda Page Anticipated date of discharge: 05/13/18 - Constitutional Vitals: Temp Pulse Resp BP Pulse Ox 98.0 F 64 18 126/57 99 05/13/18 06:57 05/13/18 06:57 05/13/18 06:57 05/13/18 06:57 05/13/18 06:57 General appearance: Present: cooperative, A&O X 3, pleasant, no acute distress, answers questions appropriately - Head Head exam: Present: atraumatic, normocephalic - Eye Eye exam: Present: PERRL, conjuntiva pink, sclera anicteric Pupils: Present: PERRL - Neck Neck exam general surgery: Present: supple, trachea midline. Absent: lymphadenopathy - Respiratory Respiratory exam: Present: CTAB. Absent: accessory muscle use, rales, rhonchi, wheezes - Cardiovascular Cardiovascular exam: Present: RRR, +S1, +S2. Absent: diastolic murmur, gallop, rubs, systolic murmur - GI/Abdominal GI/Abdominal exam: Present: normal bowel sounds, soft, no peritoneal signs. Absent: distended, tenderness - Extremities Exam Extremities exam: Present: warm, radial pulses palpable and symmetrical. Absent : calf tenderness, cyanotic, pedal edema - Neurological Exam Neurological exam: Present: CN II-XII intact, oriented X3, no focal deficits. Absent: pronater drift, facial droop, speech deficit - Skin Skin exam: Present: dry, intact - Patient Status Disposition: Home, Self-Care Condition: Good Functional capacity at discharge: independent ambulation Overall status at discharge: patient is back to baseline - Discharge Instructions Instructions: Syncope (DC), Palpitations (DC) Follow Up With: Daiana Bower MD [Primary Care Provider] - (Please call for follow-up appt within 1-2 weeks ) Additional Instructions: Please follow up with whoever prescribes or Celexa, Wellbutrin and Abilify for medication review as these medications can cause lightheadedness/dizziness/ syncope. - Diet and Activity Activity: increase activity as tolerated Diet: advance to your usual diet
[2018-05-13 10:47] VITALS: BP 105/66
--- NOTE | 2018-05-13 16:25 | Electrocardiograph Report ---
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
--- NOTE | 2018-05-13 19:33 | Electrocardiograph Report ---
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
--- NOTE | 2018-05-17 20:07 | Electrocardiograph Report ---
[place] [address] Test Date: 2018-05-13 Pat Name: Raven Beaver Department: 113 Room: 3B13 Gender: F Clinical Consultant: KHANH : 1985 Requested By: Milo Serrato Order Number: [id number] Reading MD: Celso Rosario Measurements Intervals [place] Rate: 71 P: 42 OK: 149 QRS: 38 QRSD: 96 T: 36 QT: 380 QTc: 402 Interpretive Statements SINUS RHYTHM Electronically Signed On 05-17-2018 20:05:28 EDT by Celso Rosario
== END 2018-05-13 12:34 | disposition home or self-care (01) ==
LOC: EMEROO 16:33 → 3BNU 16:33
PROVIDERS: ADMIT Pediatrics; ATTEND Family Medicine

== ENCOUNTER 2018-05-13 15:40 | Observation (INO) ==
--- NOTE | 2018-05-13 15:56 | Emergency Department Note ---
Disposition Clinical Impression: Syncope Qualifiers: Syncope type: unspecified Qualified Code(s): R55 - Syncope and collapse Disposition: Admitted As Inpatient Referrals: Daiana Bower MD [Primary Care Provider] - Forms: ED Satisfaction Letter Time of Disposition: 18:37 Syncope HPI - General Chief Complaint: ED Syncope Stated Complaint: syncope Time Seen by Provider: 05/13/18 15:42 Source: patient Limitations: no limitations Nursing Notes Reviewed: Yes Vital Signs Reviewed: Yes - History of Present Illness HPI Narrative: Mrs. 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 Burnett, after rapid response. She had true seizure. While standing on the way skills during nursing intake. This is the fifth syncopal episode she has had in the last 7 days. She denies any trauma. She has prodromal symptoms of feeling her heart racing, slight flush sensation, tunnel vision, lightheadedness. Her symptoms today are identical to prior cecal episodes. She has been admitted to this facility twice; discharged 6 days ago and discharged this morning with follow-up to cardiology. - Related Data Home Medications Medication Instructions Recorded Confirmed Bupropion HCl [Wellbutrin Xl] 300 mg PO DAILY 12/28/15 05/13/18 Aripiprazole [Abilify] 5 mg PO DAILY 05/07/18 05/13/18 Citalopram Hydrobromide 40 mg PO DAILY 05/07/18 05/13/18 [Citalopram HBr] Aspirin Enteric Coated [Aspirin EC] 81 mg PO DAILY 05/12/18 05/13/18 Allergies Allergy/AdvReac Type Severity Reaction Status Date / Time levofloxacin [From Levaquin] AdvReac Hives Verified 05/12/18 19:08 Past Medical History - Past Medical History Medical history: Reports: syncope Surgical history: Reports: non-contributory Psychiatric history: Reports: anxiety, depression, other 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 MRI 05/2018: MR/MR head/brain wo con IMPRESSION: Normal MRI brain TTE 05/2018 with EF 60-65%, mild diastolic dysfunction, no segmental wall motion abnormalities. Dr. Burnett came down to speak with us in emergency department. He prefers admission to the cardiology service for continued evaluation and management. PERC score of zero; <2% chance of PE. Wells PE score 0.0; 1.3% chance of PE in ED Population. Lab work reviewed. Labs from this morning when she was still in patient showed unremarkable serum hematology, unremarkable serum chemistry. EKG dated 05/13/18 at 16:03 interpreted as sinus rhythm with rate of 88. NV 138 , QRS 94, QTC 400. Normal axis. Nonspecific ST-T changes. Compared to previous EKG dated 05/12/18 showing no acute ischemic changes or comparison. Discussed the patient with Dr. Burnett. He recommends admission for cardiac evaluation. I discussed the patient with on-call cardiology, Dr. Velasquez, who is familiar with the patient. He requests admission to the hospital so cardiology following. I discussed the above with the patient and her . They are agreeable to admission for continued management. I discussed in detail the meaning of an EKG in troponin in the context of cardiac muscle. I discussed and thanked them for their patients throught the process of freeing out what potential causes could be. Discussed the need to rule out cardiac etiology the patient's symptoms and discussed the incremental escalation in the diagnostic approach to this. Expressed understanding remained pleasant. Vital Signs Temperature 99.4 F 05/13/18 15:44 Pulse Rate 98 05/13/18 15:44 Respiratory Rate 20 05/13/18 15:44 Blood Pressure 141/89 05/13/18 15:44 O2 Sat by Pulse Oximetry 96 05/13/18 15:44 Temperature 99.4 F 05/13/18 15:44 Pulse Rate 89 05/13/18 17:35 Respiratory Rate 18 05/13/18 17:35 Blood Pressure 115/74 05/13/18 17:35 O2 Sat by Pulse Oximetry 98 05/13/18 17:35 Oxygen Delivery Oxygen Delivery Room Air
[2018-05-13] MEDS ORDERED: Naloxone 0.4 MG/ML INJ IVP PRN (17:25)
--- NOTE | 2018-05-13 17:29 | Internal Med History&Physical ---
Date of Encounter: 05/13/18 Time of Encounter: 17:27 Internal Medicine - H&P: HPI Chief complaint: Syncope History of present illness: Ms. Beaver is a 32 year old female who had been recurrently admitted to the hospital for syncope had a recurrent event at her cardiology office today. She had her first episode of syncopal episode approximately when she was and had been investigated with a negative Holter monitor. After that she had 1 episode 1 year ago. However since last she has been having recurrent issues with syncope episodes associated with palpitation. Was admitted to the hospital twice and was discharged today to the outpatient cardiology. In the clinic while she was standing up taking her weight, she described heart racing sensation, felt weird, associated with blurry vision and subsequently blacked out for a period of approximately 30 seconds. Associated with bilateral upper extremity tingling. Apparently she had an event monitor in place while this episode happened EKG personally reviewed with rate 88, normal sinus rhythm Past Med Surg Social Fam HX - Past Medical History Medical history: syncope Additional medical history: heart palpiatations Psychiatric history: anxiety, depression, other - Past Surgical History Surgical History: non-contributory Additional surgical history: D&C. Tonsillectomy - Social History Smoking Status: Never smoker Smokeless Tobacco Status: No Alcohol use: none Drug use: none - Family History Mother Living Status: Still Living Hx Family Endocrine Disorder: Yes (DM) Mother Maternal Grandmother Living Status: Hx Family Cancer: Yes Father Grandfather Living Status: Hx Family Cardiac Disorders: Yes (Stroke) Internal Medicine - H&P: Meds Bupropion HCl [Wellbutrin Xl] 300 mg PO DAILY 12/28/15 [History] Aripiprazole [Abilify] 5 mg PO DAILY 05/07/18 [History] Citalopram Hydrobromide [Citalopram HBr] 40 mg PO DAILY 05/07/18 [History] Aspirin Enteric Coated [Aspirin EC] 81 mg PO DAILY 05/12/18 [History] 3 Allergy/AdvReac Type Severity Reaction Status Date / Time levofloxacin [From Levaquin] AdvReac Hives Verified 05/12/18 19:08 All Systems PM: A 10-system review of systems was performed and is negative for pertinent findings except as documented above in the HPI. Review of systems: ROS 14 point review of systems reviewed as best as possible given presentation. Pertinent positive or negative as per HPI or otherwise reviewed as negative - Constitutional Vitals: Temp Pulse Resp BP Pulse Ox 99.4 F 98 20 141/89 96 05/13/18 15:44 05/13/18 15:44 05/13/18 15:44 05/13/18 15:44 05/13/18 15:44 Exam: General - AAO x 3 Psych - Appropriate affect/speech. No agitation Eyes - CRISTOFER. Eye lids intact. No scleral icterus Neuro - No gross peripheral or central neuro deficits on inspection Heart - Sinus. RRR. S1 and S2 present. No added HS/murmurs appreciated. No elevated JVD appreciated. Lung - Adequate air entry b/l, No crackles/wheezes appreciated GI - Soft, non-tender. No hepatosplenomegaly/ascites. BS+ - No CVA/suprapubic tenderness or palpable bladder distension Skin - Intact. No rash/petechiae/ecchymosis. Warm extremities - Assessment and plan (1) Syncope Current Visit: Yes Status: Chronic Assessment and plan: Appears to be concerning for cardiogenic syncope Uncertain whether this is poorly tolerated sinus tachycardia Consult cardiology. She had an event monitor when episode happened. Would appreciate cardiology evaluation of rhythm Fall risk Telemetry Qualifiers: Syncope type: unspecified Qualified Code(s): R55 - Syncope and collapse (2) Sinus tachycardia Current Visit: No Status: Acute Assessment and plan: Hx of sinus tachy (3) Depression Current Visit: Yes Status: Acute Assessment and plan: Continue Antidepressant Qualifiers: Depression Type: other depression Qualified Code(s): F32.89 - Other specified depressive episodes - Time Spent With Patient Total time spent is greater than 50% in coordination of care (as documented) at patient's floor/unit and/or counseling patient:
--- NOTE | 2018-05-13 18:53 | Emergency Department Note ---
Disposition Clinical Impression: Syncope Qualifiers: Syncope type: unspecified Qualified Code(s): R55 - Syncope and collapse Disposition: Admitted As Inpatient General Adult [facility] - General Chief complaint: ED Syncope Stated complaint: syncope Time Seen by Provider: 05/13/18 15:42 Source: patient Limitations: no limitations - History of Present Illness Pain Scale: 0 - Related Data Home Medications Medication Instructions Recorded Confirmed Bupropion HCl [Wellbutrin Xl] 300 mg PO DAILY 12/28/15 05/13/18 Aripiprazole [Abilify] 5 mg PO DAILY 05/07/18 05/13/18 Citalopram Hydrobromide 40 mg PO DAILY 05/07/18 05/13/18 [Citalopram HBr] Aspirin Enteric Coated [Aspirin EC] 81 mg PO DAILY 05/12/18 05/13/18 Allergies Allergy/AdvReac Type Severity Reaction Status Date / Time levofloxacin [From Levaquin] AdvReac Hives Verified 05/12/18 19:08 Past Medical History - Past Medical History Medical history: Reports: syncope Surgical history: Reports: non-contributory Psychiatric history: Reports: anxiety, depression, other 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 - Social History Smoking Status: Never smoker Smokeless Tobacco Status: No Alcohol use: Reports: none Drug use: Reports: none Physical Exam - General Limitations: no limitations General appearance: alert, in no apparent distress Course Vital Signs Temperature 99.4 F 05/13/18 15:44 Pulse Rate 98 05/13/18 15:44 Respiratory Rate 20 05/13/18 15:44 Blood Pressure 141/89 05/13/18 15:44 O2 Sat by Pulse Oximetry 96 05/13/18 15:44 Temperature 98.2 F 05/13/18 20:00 Pulse Rate 85 05/13/18 20:00 Respiratory Rate 14 05/13/18 20:00 Blood Pressure 115/77 05/13/18 20:00 O2 Sat by Pulse Oximetry 94 05/13/18 20:00 Oxygen Delivery Oxygen Delivery Room Air Attestation Statement - Attestation Attestation: I examined this patient and my medical decision-making was reviewed with the Resident Physician, Dr. Davis. I agree with the documented findings, disposition and treatment plan as described except to the extent set forth below. Patient is a 32-year-old white female who was just discharged from the hospital this morning for syncope and brought to the emergency department from Dr. Burnett office where she was being seen for cardiology follow-up for her syncope. While in the office patient had a reported syncopal episode and Dr. Burnett was called as a rapid response was called overhead. He came over to the emergency department with the patient to tell us what it happened while in the office. He states the patient had an episode where her eyes were fluttering but she was verbally responsive immediately following the syncopal episode. Vital signs were stable heart rate was 80 bpm and regular blood pressure was 140/90. On evaluation in the ER patient was denying any headaches, no symptoms preceding the syncopal episode with the exception of some mild lightheadedness. No chest pain pressure or heaviness, no palpitations, no shortness of breath, no back pain or abdominal pain. I agree with patient's physical exam findings as documented. Vital signs are stable. EKG shows normal sinus rhythm with no acute ST or T-wave changes no evidence of Brugada no abnormalities appreciated. Patient just had labs performed this morning prior to discharge. We will not repeat these labs. Dr. Burnett mention while here that he be happy to consult on the patient may made consider placing a loop recorder for further evaluation of her symptoms. Case was discussed with the hospitalist who accepted patient for admission for further evaluation and management.
[2018-05-14] MEDS: Aspirin Enteric Coated 81 MG Tablet PO SCH (08:27)
[2018-05-14] MEDS: BuPROPion XL (24 HR) 150 MG TABLET PO SCH (08:27)
--- NOTE | 2018-05-14 11:50 | Event Note ---
Date of Encounter: 05/14/18 Time of Encounter: 11:48 - Cardiology Event Note Patient with recurrent syncope. Had syncopal event in outpatient cardiology office. Reported BP and HR stable during event. Discussed and reviewed with , plan for tilt table in am. Will make NPO after midnight. Consider consult to EP tomorrow pending tilt table results. Plan discussed and reviewed with patient and . Patient states understanding and agrees with plan. Further recommendations pending tilt in am.
--- NOTE | 2018-05-14 12:56 | Internal Med Progress Note ---
Date of Encounter: 05/14/18 Time of Encounter: 12:53 - Assessment and plan (1) Syncope Current Visit: Yes Status: Chronic Assessment and plan: Suspected neurocardiogenic syncope. Orthostats normal. Tilt table test ordered. NPO after midnight. Moderate risk for complications. Qualifiers: Syncope type: unspecified Qualified Code(s): R55 - Syncope and collapse (2) Sinus tachycardia Current Visit: No Status: Resolved (3) Depression Current Visit: Yes Status: Chronic Assessment and plan: COntinue Bupropion and Citalopram Qualifiers: Depression Type: other depression Qualified Code(s): F32.89 - Other specified depressive episodes - Time Spent With Patient Total time spent is greater than 50% in coordination of care (as documented) at patient's floor/unit and/or counseling patient: - Subjective Interval history: Patient continues to have episodes of lightheadedness not related to position. Denies any chest pain or palpitations. No fever or chills reported overnight. No focal weakness or numbness. - Constitutional Vitals: Temp Pulse Resp BP Pulse Ox 98.5 F 83 16 129/86 99 05/14/18 09:50 05/14/18 09:50 05/14/18 09:50 05/14/18 09:50 05/14/18 09:50 General appearance: Present: cooperative, A&O X 3, pleasant, answers questions appropriately - Neck Neck exam general surgery: Present: supple, trachea midline. Absent: lymphadenopathy - Respiratory Respiratory exam: Present: CTAB. Absent: accessory muscle use, rales, rhonchi, wheezes - Cardiovascular Cardiovascular exam: Present: RRR, +S1, +S2. Absent: diastolic murmur, gallop, rubs, systolic murmur - GI/Abdominal GI/Abdominal exam: Present: normal bowel sounds, soft, no peritoneal signs. Absent: distended, tenderness - Extremities Exam Extremities exam: Present: warm, radial pulses palpable and symmetrical. Absent : calf tenderness, cyanotic, pedal edema - Neurological Exam Neurological exam: Present: alert, oriented X3, no focal deficits. Absent: facial droop, speech deficit Consult Discharge Plan - Plan Referrals: Daiana Bower MD [Primary Care Provider] -
[2018-05-14] MEDS: Acetaminophen 325 MG TABLET PO PRN (20:25)
[2018-05-15] MEDS: Aspirin Enteric Coated 81 MG Tablet PO SCH (07:41)
[2018-05-15] MEDS: BuPROPion XL (24 HR) 150 MG TABLET PO SCH (07:41)
--- NOTE | 2018-05-15 09:06 | Electrophysiology Consult Note ---
<Stefany Figueroa - Last Filed: 05/15/18 09:03> Date of Encounter: 05/15/18 Time of Encounter: 08:15 Assessment and Plan (1) Syncope Status: Chronic Per EP: -Known history of syncope. -Recent TTE 05/2018 LVEF 60-65%, mild diastolic dysfunction, no segmental wall motion abnormalities. -Recent carotid duplex and brain MRI unremarkable. -Reports prodromal symptoms of palpitations/fluttering. -Has not sustained any injuries from episodes. -No loss of bowel/bladder. -Previously seen by cardiology who stated consider event monitor. -Tilt table test pending. -Further recommendations pending tilt table test. -Educated to avoid caffeine/ETOH. Educated to stay well hydrated. Educated to change positions slowly. -Recommend no driving until after seen in outpatient setting by cardiology, patient states understanding. Qualifiers: Syncope type: unspecified Qualified Code(s): R55 - Syncope and collapse (2) Palpitations Status: Chronic Per EP: -Reports palpitations prior to syncopal events. -Telemetry reviewed with ST noted, HR 120s. -Average HR previous 12 hours noted to be 75, SR. -No arrythmias noted. Discussion w patient/family: The assessment and plan as outlined above was discussed with the patient who expressed understanding and agreement. All questions were answered. Thank you for involving us in the care of your patient. Please call with any questions. Discussed and reviewed with Dr.John Lozada. History of Present Illness Consult date: 05/15/18 Requesting physician: Petar Wynn Consult reason: recurrent syncope Chief complaint: recurrent syncope History of present illness: Ms. Beaver is a 32 year old female with a relevant past medical history of anxiety, depression, syncope who presented to [facility] with complaints of recurrent syncopal episodes. Patient was recently seen by cardiololgy and recommended for event monitor and outpatient follow up. Patient presented to cardiology office and then had another syncopal event. Reported HR and BP normal during event in cardiology office. Patient states first syncopal episode was 6 years ago while . Patient reports has had multiple episodes since. Patient states they are getting more frequent. Patient reports prior to passing out, she feels palpitations/fluttering and then she states "everything goes black." Patient reports has not sustained any injuries from episodes. Patient denies loss of bowel/bladder. Patient reports she tries to drink plenty of water, however states she drinks multiple caffeinated beverages per day. Patient seen and examined in stress lab prior to tilt table test. Past Med Surg Social Fam HX - Past Medical History Attestation: Yes The following information was validated with the patient. Medical history: syncope Additional medical history: Heart palpitations Psychiatric history: anxiety, depression, other - Past Surgical History Surgical History: non-contributory Additional surgical history: D&C. T&A - Social History Smoking Status: Never smoker Smokeless Tobacco Status: No Alcohol use: none Drug use: none - Family History Mother Living Status: Still Living Hx Family Endocrine Disorder: Yes (DM) Mother Maternal Grandmother Living Status: Hx Family Cancer: Yes Father Grandfather Living Status: Hx Family Cardiac Disorders: Yes (Stroke) Medications and Allergies Bupropion HCl [Wellbutrin Xl] 300 mg PO DAILY 12/28/15 [History] Aripiprazole [Abilify] 5 mg PO DAILY 05/07/18 [History] Citalopram Hydrobromide [Citalopram HBr] 40 mg PO DAILY 05/07/18 [History] Aspirin Enteric Coated [Aspirin EC] 81 mg PO DAILY 05/12/18 [History] 3 Allergy/AdvReac Type Severity Reaction Status Date / Time levofloxacin [From Levaquin] AdvReac Hives Verified 05/12/18 19:08 All Systems Review: The remainder of the systems were reviewed and are negative - Cardiovascular Cardiovascular: as per HPI, syncope Physical Examination Vital Signs, Last 4 Hours Temp Pulse Resp BP Pulse Ox 05/15/18 07:48 95 05/15/18 07:06 98.2 F 69 17 109/72 95 General: Conversant, No Apparent Distress HEENT: Atraumatic, Normocephaly, Mucus Membranes Moist Neck: No JVD, Normal carotid pulses Cardiac: Reg Rate and Rhythm, Normal S1 and S2, No Murmur Lungs: Normal Breath Sounds, No Wheeze, Rales, Rhonchi Neuro: Alert and responsive, No focal deficits noted Abdomen: Soft, Non-Tender Skin: No rashes noted on visualized skin Musculoskeletal: No Chest Wall Tenderness Extremities: No Clubbing, No Cyanosis, No Edema, Normal Pulses Results Active Medications Acetaminophen (Tylenol) 650 mg PO Q6HR PRN PRN Reason: Headache Stop: 11/13/18 19:33 Last Admin: 05/14/18 20:25 Dose: 650 mg Aspirin (Aspirin Ec) 81 mg PO DAILY JIMMIE Stop: 11/13/18 09:01 Last Admin: 05/15/18 07:41 Dose: 81 mg Bupropion HCl (Wellbutrin Xl) 300 mg PO DAILY JIMMIE Stop: 11/13/18 09:01 Last Admin: 05/15/18 07:41 Dose: 300 mg Citalopram Hydrobromide (Celexa) 40 mg PO DAILY JIMMIE Stop: 11/13/18 09:01 Last Admin: 05/15/18 07:41 Dose: 40 mg Docusate Sodium (Colace) 100 mg PO DAILY PRN; Protocol PRN Reason: Constipation Stop: 11/13/18 19:41 Last Admin: 05/15/18 07:46 Dose: 100 mg Naloxone HCl (Narcan) 0.4 mg IVP Q2MIN PRN PRN Reason: SEE COMMENTS Stop: 11/12/18 17:26 - Imaging and Cardiology Chest Xray: report reviewed Echo: report reviewed - EKG Interpretation EKG results cardiology: personally reviewed (ECG with SR, HR 88.), other ( Telemetry reviewed with average HR previous 12 hours noted to be 75, SR. Rare PVC noted.) Consult Discharge Plan - Plan Instructions: Syncope (DC), Depression (DC) Additional Instructions: Follow up with cardiology as scheduled. Wear compression stockings Referrals: Daiana Bower MD [Primary Care Provider] - (in 1-2 weeks) Celso Rosario DO [Partnered Physician] - (Web request sent 05/16/18) <Jenaro Lozada - Last Filed: 05/19/18 15:17> Date of Encounter: 05/19/18 - Attending Attestation I have personally performed a face to face evaluation on this patient. I have reviewed and agree with the care plan. History and Exam by me shows: Syncope which clinically has some features consistent with vasovagal. All cardiac testing negative, including tilt table. Would treat as vasovagal and continue event monitor to completely rule out arrythmia. Will follow up as outpt. Assessment and Plan Discussion w patient/family: The assessment and plan as outlined above was discussed with the patient and/or family members who expressed understanding and agreement. All questions were answered. Thank you for involving us in the care of your patient. Please call with any questions. History of Present Illness History of present illness: Ms. Beaver is a 32 year old female All Systems Review: The remainder of the systems were reviewed and are negative Physical Examination Vital Signs, Last 4 Hours Temp Pulse Resp BP BP BP BP 05/15/18 16:08 98.4 F 89 16 105/69 05/15/18 16:07 105/69 109/78 124/88 Pulse Ox 05/15/18 16:08 97 05/15/18 16:07 Results 05/16/18 04:27 05/16/18 04:27
[2018-05-15] MEDS: Acetaminophen 325 MG TABLET PO PRN (16:00)
[2018-05-15] MEDS ORDERED: Ringers Solution, Lactated 1,000 ML ONE (16:05)
[2018-05-15] MEDS: Ringers Solution, Lactated 1,000 ML IVC SCH (16:11)
[2018-05-16] MEDS: Ringers Solution, Lactated 1,000 ML IVC SCH ×2 (02:11→10:27)
[2018-05-16 05:06] LABS: Basophils # 0.1 K/mcL (0.0-0.2); Basophils % 0.5 %; Eosinophils # 0.1 K/mcL (0.0-0.6); Eosinophils % 1.1 %; Hematocrit 37.9 % (35.3-44.9); Hemoglobin 11.9 g/dL (11.5-15.4); Immature Granulocytes % 0.3 % (0-4); Lymphocytes # 3.7 K/mcL (0.6-4.6); Lymphocytes % 35.3 %; Mean Corpuscular HGB Conc 31.4 g/dL (31.6-35.5); Mean Corpuscular Hemoglobin 27.3 pg (28.0-33.3); Mean Corpuscular Volume 86.9 fL (83.0-100.0); Monocytes # 0.6 K/mcL (0.0-1.3); Monocytes % 5.5 %; Neutrophils # 6.1 K/mcL (1.6-8.9); Platelet Count 303 K/mcL (140-400); Red Blood Count 4.36 M/mcL (3.82-4.97); Red Cell Distribution Width 13.8 % (11.5-14.5); Segmented Neutrophils % 57.3 %
[2018-05-16 05:22] LABS: BUN/Creatinine Ratio 16 (6-26); Blood Urea Nitrogen 12 mg/dL (6-20); Calcium 8.5 mg/dL (8.6-10.3); Carbon Dioxide 25 mEq/L (23-29); Chloride 106 mEq/L (98-107); Glucose 113 mg/dL (70-105); Osmolality,Calculated 285 (280-300); Potassium 3.8 mEq/L (3.5-5.1); Sodium 137 mEq/L (136-145); eGFR For African Americans > 60 (> 60); eGFR For Non-African Americans > 60 (> 60)
[2018-05-16] MEDS: BuPROPion XL (24 HR) 150 MG TABLET PO SCH (09:26)
[2018-05-16] MEDS: Aspirin Enteric Coated 81 MG Tablet PO SCH (09:26)
--- NOTE | 2018-05-16 11:24 | Discharge Summary ---
- NOTES TO OUTPATIENT PROVIDER Notes to Outpatient Provider: Patient hospitalized for episodes of recurrent syncope has had prior workup here including MRI of the brain and carotid Dopplers which were negative. Underwent tilt table test here per cardiology recommendations which was negative. Patient has an event monitor in place and will follow up with cardiology for further evaluation. Date of Encounter: 05/16/18 Time of Encounter: 11:21 - Discharge Diagnosis (1) Syncope Priority: Primary Status: Chronic Qualifiers: Syncope type: unspecified Qualified Code(s): R55 - Syncope and collapse (2) Sinus tachycardia Priority: Secondary Status: Resolved (3) Depression Priority: Secondary Status: Chronic Qualifiers: Depression Type: other depression Qualified Code(s): F32.89 - Other specified depressive episodes Hospital course: Ms. Beaver is a 32 year old female Patient with history of depression was hospitalized for episodes of recurrent syncope. She has had prior workup here including MRI of the brain and carotid Dopplers which were negative. Underwent tilt table test here per cardiology recommendations which was negative. Cardiology believes it is most likely vasovagal syncope. She already has an event monitor and place and has follow-up with cardiology land. At this time her blood pressure has been stable. She received IV fluids during her stay here. She may have an orthostatic component to her syncopal episodes. I recommend wearing compression stockings. She will also follow-up with cardiology for further evaluation and recommendations for her recurrent syncopal episodes. Discharge discussed with: patient, nurse - Time Spent with Patient Total time spent providing and/or coordinating discharge services: Less than 30 minutes (20 min) - Discharge Medications Home Medications: Bupropion HCl [Wellbutrin Xl] 300 mg PO DAILY 12/28/15 [History] Aripiprazole [Abilify] 5 mg PO DAILY 05/07/18 [History] Citalopram Hydrobromide [Citalopram HBr] 40 mg PO DAILY 05/07/18 [History] Aspirin Enteric Coated [Aspirin EC] 81 mg PO DAILY 05/12/18 [History] Allergies/Adverse Reactions: 3 Allergy/AdvReac Type Severity Reaction Status Date / Time levofloxacin [From Levaquin] AdvReac Hives Verified 05/12/18 19:08 Date of admission: 05/13/18 19:03 Primary care physician: Daiana Bower Consults: 05/15/18 12:46 Consult to Electrophysiology (EP) [CONS] Routine Consulting Provider: Electrophysiology Sherley Reason for Consult: syncope Call Completed: Yes Discharging clinician: John Rodriguez Anticipated date of discharge: 05/16/18 - Constitutional Vitals: Temp Pulse Resp BP Pulse Ox 98.3 F 82 17 108/75 96 05/16/18 06:59 05/16/18 06:59 05/16/18 06:59 05/16/18 10:51 05/16/18 09:29 General appearance: Present: cooperative, A&O X 3, pleasant, answers questions appropriately - Neck Neck exam general surgery: Present: supple, trachea midline. Absent: lymphadenopathy - Respiratory Respiratory exam: Present: CTAB. Absent: accessory muscle use, rales, rhonchi, wheezes - Cardiovascular Cardiovascular exam: Present: RRR, +S1, +S2. Absent: diastolic murmur, gallop, rubs, systolic murmur - GI/Abdominal GI/Abdominal exam: Present: normal bowel sounds, soft, no peritoneal signs. Absent: distended, tenderness - Extremities Exam Extremities exam: Present: warm, radial pulses palpable and symmetrical. Absent : calf tenderness, cyanotic, pedal edema - Neurological Exam Neurological exam: Present: CN II-XII intact, oriented X3, no focal deficits. Absent: facial droop, speech deficit - Patient Status Disposition: Home, Self-Care Condition: Good Functional capacity at discharge: independent ambulation Overall status at discharge: patient is progressing back to baseline - Discharge Instructions Instructions: Syncope (DC), Depression (DC) Follow Up With: Daiana Bower MD [Primary Care Provider] - (in 1-2 weeks) Celso Rosario DO [Partnered Physician] - (Web request sent 05/16/18) Additional Instructions: Follow up with cardiology as scheduled. Wear compression stockings - Diet and Activity Activity: increase activity as tolerated Diet: advance to your usual diet
[2018-05-16 14:06] VITALS: BP 122/82
--- NOTE | 2018-05-17 20:32 | Electrocardiograph Report ---
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
--- NOTE | 2018-05-18 09:36 | Electrocardiograph Report ---
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
== END 2018-05-16 14:55 | disposition home or self-care (01) ==
LOC: 3NENU 15:40 → EMEROO 15:40 → SUATTDRO 19:03 → 3NENU 19:35
PROVIDERS: ADMIT Family Medicine; ATTEND Internal Medicine

== ENCOUNTER → 2018-06-10 12:46 | Observation (INO) ==
--- NOTE | 2018-06-10 03:36 | Internal Med History&Physical ---
Date of Encounter: 06/10/18 Time of Encounter: 02:30 Internal Medicine - H&P: HPI Chief complaint: palpitations; syncope Admitted From: Hospital to Hospital Transfer Plans for Post Hospital Care: Home History of present illness: Ms. Beaver is a 32 year old female who presents in transfer from [facility] ER with reports of palpitations, dizziness, and recurrent syncope. She has been hospitalized 3 times in the last 1-2 months for concerns of syncope. She has had extensive workup performed, most of which has been negative. She is currently wearing an event monitor and is due to have it removed later today. She is due to follow-up with cardiology this week as well. However, overnight last night and tonight, she developed palpitations, racing heartbeats, lightheaded spells, dizziness, and near syncopal spells. She was resting and sitting in a chair comfortably this evening when this last episode occurred. This prompted her to go to the ER at [facility] for evaluation. Workup was essentially negative other than some mild hypokalemia. I spoke with the ER staff at [facility] and accepted the patient in transfer. Of note , I personally admitted the patient last month and recall her history and reviewed the old records. Since then, she reports a total of 3 more episodes of syncope. She denies any chest pains, cough, congestion, dyspnea, fevers, vomiting, or diarrhea. I reviewed all her old records and workup. However, I note that there was no workup for PE. She denies chest pain, and her d-dimer is negative. However, given the tachycardia, syncope, and associated shortness of breath with these spells, I am inclined to order a CT angiogram of chest to rule out any thromboembolism in her chest. Patient denies any IV drug allergies. She is agreeable to the CT of the chest. She does request cardiology consultation given her current event monitor due to be removed today and her recurrent syncopal spells. Past Med Surg Social Fam HX - Past Medical History Attestation: Yes The following information was validated with the patient. Source: patient, old records reviewed Medical history: syncope Additional medical history: PALPITATIONS Psychiatric history: anxiety, depression, other - Past Surgical History Surgical History: other Additional surgical history: D&C. T&A - Social History Smoking Status: Never smoker Smokeless Tobacco Status: No Alcohol use: none Drug use: none Current living situation: Home, With Family Activity Level: Independent ambulation - Family History Mother Name: Nemo Age: 54 Living Status: Still Living Hx Family Cardiac Disorders: Yes (HTN) Hx Family Endocrine Disorder: Yes (DM) Mother Maternal Grandmother Name: Zahraa Living Status: Age at : 65 Cause of : skin cancer Hx Family Cancer: Yes (skin Cancer) Father Grandfather Name: Matty valencia Living Status: Age at : 82 Cause of : complications from stroke Hx Family Cardiac Disorders: Yes (Stroke) Internal Medicine - H&P: Meds Bupropion HCl [Wellbutrin Xl] 300 mg PO DAILY 12/28/15 [History] Aripiprazole [Abilify] 5 mg PO DAILY 05/07/18 [History] Citalopram Hydrobromide [Citalopram HBr] 40 mg PO DAILY 05/07/18 [History] Aspirin Enteric Coated [Aspirin EC] 81 mg PO DAILY 05/12/18 [History] 3 Allergy/AdvReac Type Severity Reaction Status Date / Time levofloxacin [From Levaquin] AdvReac Hives Verified 06/09/18 21:04 - Constitutional Constitutional: no chills, no fever(s) - EENT Eyes: no blurry vision, no change in vision Ears: no ear pain, no tinnitus Nose, mouth and throat: no nasal congestion, no sinus pressure, no sore throat - Cardiovascular Cardiovascular ROS IM: diaphoresis, dyspnea (with palpitations), lightheadedness , palpitations, syncope, no chest pain - Respiratory Respiratory: no cough, no hemoptysis, no chest congestion, no excessive phlegm production, no pain with cough - Gastrointestinal Gastrointestinal: no abdominal pain, no diarrhea, no hematemesis, no hematochezia, no melena, no nausea, no vomiting - Genitourinary Genitourinary: no dysuria, no flank pain, no hematuria - Musculoskeletal Musculoskeletal ROS IM: no arthralgias, no back pain - Integumentary Integumentary IM: no rash, no jaundice - Neurological Neurological ROS: dizziness, no focal weakness, no frequent falls, no headache(s ) - Psychiatric Psychiatric: anxiety - Endocrine Endocrine IM: no polydipsia, no polyuria - Allergic/Immunologic Allergic/Immunologic: no wheezing, no GI upset with certain foods - Constitutional Vitals: Temp Pulse Resp BP Pulse Ox 98.5 F 101 16 125/81 96 06/10/18 01:34 06/10/18 01:34 06/10/18 01:34 06/10/18 01:34 06/10/18 01:34 General appearance: Present: cooperative, A&O X 3, pleasant, no acute distress, answers questions appropriately - Head Head exam: Present: atraumatic, normal inspection - Eye Eye exam: Present: EOMI, normal appearance, PERRL. Absent: scleral icterus Pupils: Present: normal accommodation - ENT ENT exam: Present: mucous membranes moist, normal exam, normal oropharynx - Neck Neck exam general surgery: Present: full ROM, supple. Absent: lymphadenopathy, tenderness, nuchal rigidity, thyromegaly - Expanded Neck Exam Neck exam: Absent: carotid bruit - Respiratory Respiratory exam: Present: CTAB. Absent: chest wall tenderness, rales, respiratory distress, rhonchi, wheezes - Cardiovascular Cardiovascular exam: Present: diastolic murmur, RRR, +S1, +S2, systolic murmur - GI/Abdominal GI/Abdominal exam: Present: normal bowel sounds, soft. Absent: guarding, hepatomegaly, mass, rebound, splenomegaly, tenderness - Extremities Exam Extremities exam: Present: full ROM, warm, radial pulses palpable and symmetrical. Absent: calf tenderness, joint swelling, pedal edema, tenderness - Back Exam Back exam: Present: full ROM. Absent: CVA tenderness (L), CVA tenderness (R) - Neurological Exam Neurological exam: Present: alert, CN II-XII intact, oriented X3, no focal deficits - Psychiatric Psychiatric exam: Present: normal affect, normal mood - Skin Skin exam: Present: dry, intact, warm Internal Med - H&P Results - EKG Data -: EKG Interpreted by Myself - EKG Data Prior EKG available for review: no EKG comments: 06/10/18 03:42 Sinus tachycardia - Assessment and plan (1) Syncope Current Visit: Yes Status: Acute Assessment and plan: 1. Will trend troponins and EKG's. 2. Patient had has extensive work-up within the last month. Will not repeat such testing unless clinically indicated. 3. Although D-Dimer negative and patient denies any chest pain, I will order CTA chest to rule out occult PE. 4. Consult Cardiology. 5. Will monitor glucose levels with meals and QHS to observe for possible hypoglycemia. Qualifiers: Syncope type: unspecified Qualified Code(s): R55 - Syncope and collapse (2) DVT prophylaxis Current Visit: Yes Status: Acute Assessment and plan: 1. Heparin SQ.
[2018-06-10 05:26] LABS: Basophils % 0.3 %; Eosinophils # 0.1 K/mcL (0.0-0.6); Eosinophils % 0.7 %; Hematocrit 38.7 % (35.3-44.9); Hemoglobin 12.3 g/dL (11.5-15.4); Immature Granulocytes % 0.4 % (0-4); Lymphocytes # 3.3 K/mcL (0.6-4.6); Lymphocytes % 30.4 %; Mean Corpuscular HGB Conc 31.8 g/dL (31.6-35.5); Mean Platelet Volume 9.6 fL (9.4-12.4); Monocytes # 0.6 K/mcL (0.0-1.3); Monocytes % 5.2 %; Neutrophils # 6.8 K/mcL (1.6-8.9); Platelet Count 295 K/mcL (140-400); Red Cell Distribution Width 14.2 % (11.5-14.5)
[2018-06-10 05:33] LABS: INR 1.2
[2018-06-10 05:35] LABS: Activated Partial Thrombo Time 39.3 Seconds (26.0-36.0)
[2018-06-10 05:49] LABS: Alanine Aminotransferase 10 Units/L (7-52); Albumin 3.8 g/dL (3.5-5.7); Albumin/Globulin Ratio 1.8 (1.1-2.2); Alkaline Phosphatase 67 Units/L (34-104); Aspartate Amino Transferase 10 Units/L (13-39); BUN/Creatinine Ratio 14 (6-26); Bilirubin,Total 0.3 mg/dL (0.3-1.0); Blood Urea Nitrogen 11 mg/dL (6-20); Calcium 8.9 mg/dL (8.6-10.3); Carbon Dioxide 24 mEq/L (23-29); Chloride 106 mEq/L (98-107); Globulin 2.1 g/dL (2.4-3.5); Glucose 131 mg/dL (70-105); Osmolality,Calculated 291 (280-300); Potassium 3.7 mEq/L (3.5-5.1); Sodium 140 mEq/L (136-145); Total Protein 5.9 g/dL (6.4-8.9); eGFR For African Americans > 60 (> 60); eGFR For Non-African Americans > 60 (> 60)
[2018-06-10 11:14] VITALS: BP 111/74
--- NOTE | 2018-06-10 11:32 | Discharge Summary ---
- NOTES TO OUTPATIENT PROVIDER Notes to Outpatient Provider: Will need follow-up with Holter monitor/event monitor results Date of Encounter: 06/10/18 Time of Encounter: 11:27 - Discharge Diagnosis (1) Syncope Priority: Primary Status: Acute Qualifiers: Syncope type: unspecified Qualified Code(s): R55 - Syncope and collapse (2) Palpitations Priority: Primary Status: Chronic (3) Depression Priority: Primary Status: Chronic Qualifiers: Depression Type: other depression Qualified Code(s): F32.89 - Other specified depressive episodes Hospital course: Ms. Beaver is a 32 year old female with PMH depression, anxiety and recurrent near syncope with palpitations presented to [facility] on 10/18 with complaints of near syncopal. Tachycardia. She was placed in observation status for further workup and treatment. Per chart review, patient has had extensive workup for exact symptoms. 05/2018 TTE E with EF 60%, mild diastolic dysfunction and no wall motion abnormalities. Recent carotid duplex and brain MRI unremarkable. Recent stress test negative. She was evaluated by Dr. Lozada (electrophysiology) who did not feel an EP study was indicated at this time as EKG is consistently demonstrated sinus tachycardia; symptoms thought to be more secondary to psychiatric source. Case discussed with cardiology REPORT SPECIALIST, Stefany Figueroa on 06/10/18 and no further cardiac workup indicated at this time. Patient was scheduled to see it software developer on day of hospitalization however she missed appointment. Patient was advised to return Holter/event monitor as previously instructed and a new cardiology appointment will be made for her. No further syncope or palpitations while inpatient. She was discharged home in stable condition with outpatient follow-up. - Time Spent with Patient Total time spent providing and/or coordinating discharge services: - Discharge Medications Home Medications: Bupropion HCl [Wellbutrin Xl] 300 mg PO DAILY 12/28/15 [History] Aripiprazole [Abilify] 5 mg PO DAILY 05/07/18 [History] Citalopram Hydrobromide [Citalopram HBr] 40 mg PO DAILY 05/07/18 [History] Aspirin Enteric Coated [Aspirin EC] 81 mg PO DAILY 05/12/18 [History] Calcium Carbonate [Calcium] 500 mg PO DAILY 06/10/18 [History] Allergies/Adverse Reactions: 3 Allergy/AdvReac Type Severity Reaction Status Date / Time levofloxacin [From Levaquin] AdvReac Hives Verified 06/09/18 21:04 Date of admission: 06/10/18 01:11 Primary care physician: Daiana Bower Consults: 06/10/18 03:24 Consult to Physician [CONS] Routine Consulting Provider: Mere Velasquez Reason for Consult: recurrent syncope; has event monitor in place -- due to come off today Call Completed: No 06/10/18 11:18 Consult to Cardiology [CONS] Routine Comment: Consulting Provider: Cardiology Sherley Reason for Consult: Near syncope, tachycardia Call Completed: Yes Discharging clinician: Chanda Page Anticipated date of discharge: 06/10/18 - Constitutional Vitals: Temp Pulse Resp BP Pulse Ox 98.3 F 72 16 111/74 96 06/10/18 11:05 06/10/18 11:05 06/10/18 11:05 06/10/18 11:05 06/10/18 11:05 General appearance: Present: cooperative, A&O X 3, morbidly obese, pleasant, no acute distress, answers questions appropriately - Head Head exam: Present: atraumatic, normocephalic - Eye Eye exam: Present: PERRL, conjuntiva pink, sclera anicteric Pupils: Present: PERRL - Neck Neck exam general surgery: Present: supple, trachea midline. Absent: lymphadenopathy - Respiratory Respiratory exam: Present: CTAB. Absent: accessory muscle use, rales, rhonchi, wheezes - Cardiovascular Cardiovascular exam: Present: RRR, +S1, +S2. Absent: diastolic murmur, gallop, rubs, systolic murmur - GI/Abdominal GI/Abdominal exam: Present: normal bowel sounds, soft, no peritoneal signs. Absent: distended, tenderness - Extremities Exam Extremities exam: Present: warm, radial pulses palpable and symmetrical. Absent : calf tenderness, cyanotic, pedal edema - Neurological Exam Neurological exam: Present: CN II-XII intact, oriented X3, no focal deficits. Absent: pronater drift, facial droop, speech deficit - Skin Skin exam: Present: dry, intact - Patient Status Disposition: Home, Self-Care Condition: Good Functional capacity at discharge: independent ambulation Overall status at discharge: patient is back to baseline - Discharge Instructions Instructions: Palpitations (DC) Follow Up With: Daiana Bower MD [Primary Care Provider] - (Please call for follow-up appt within one week) Bj Burnett DO [Partnered Physician] - (Please call the office if you have not heard from them within 2-3 weeks for follow-up appointment) - Diet and Activity Activity: increase activity as tolerated Diet: advance to your usual diet
[~2018-06-10 12:46] MED LIST: *HR* Heparin 5,000 UNIT/ML VIAL SQ SCH; 0.9 % Sodium Chloride w KCl 20 MEQ/1,000 ML MLS IVC SCH; Acetaminophen 325 MG TABLET PO PRN; Aspirin Enteric Coated 81 MG Tablet PO SCH; Isovue-370 500 ML INFUS..BTL IV ONE; Naloxone 0.4 MG/ML INJ IVP PRN
== END | disposition home or self-care (01) ==
LOC: 3BNU
PROVIDERS: ADMIT Pediatrics; ATTEND Pediatrics

== ENCOUNTER 2019-10-02 02:31 | Observation (INO) ==
[2019-10-02 02:54] VITALS: BP 129/83
[2019-10-02] MEDS ORDERED: Famotidine 20 MG/2 ML VIAL IVP ONE (03:08)
[2019-10-02] MEDS ORDERED: methylPREDNISolone 125 MG/2 ML VIAL IVP ONE (03:08)
[2019-10-02 05:31] LABS: Amphetamine Screen,Urine Negative ng/mL (Cutoff=1000); Barbiturate Screen,Urine Negative ng/mL (Cutoff=200); Benzodiazepines Screen,Urine Negative ng/mL (Cutoff=200); Cannabinoid Screen,Urine Positive ng/mL (Cutoff = 50); Cocaine Screen,Urine Negative ng/mL (Cutoff= 300); Opiate Screen,Urine Negative ng/mL (Cutoff=300); Phencyclidine Screen,Urine Negative ng/mL (Cutoff=25)
[2019-10-02] MEDS ORDERED: Ondansetron ODT 4 MG TAB.RAPDIS SL ONE (06:38)
[2019-10-02] MEDS ORDERED: Ibuprofen 400 MG TABLET PO PRN (09:02)
[2019-10-02] MEDS ORDERED: Haloperidol Lactate 5 MG/ML VIAL IM PRN (09:02)
[2019-10-02] MEDS ORDERED: *HR* LORazepam 1 MG TABLET PO PRN (09:02)
[2019-10-02] MEDS ORDERED: *HR* LORazepam 2 MG/ML VIAL IM PRN (09:02)
[2019-10-02] MEDS ORDERED: hydrOXYzine pamoate 25 MG CAPSULE PO PRN (09:02)
[2019-10-02] MEDS ORDERED: traZODone 50 MG TABLET PO PRN (09:02)
[2019-10-02] MEDS ORDERED: MOM Conc 10 ML UD.LIQ PO PRN (09:02)
[2019-10-02] MEDS ORDERED: Mag Hydrox/Al Hydrox/Simeth 30 ML UDC PO PRN (09:02)
[2019-10-02] MEDS ORDERED: Acetylcysteine 5,000 MG in D5% in Water 500 ML IVC ONE (12:12)
[2019-10-02] MEDS ORDERED: ARIPiprazole 5 MG TABLET PO SCH (21:00)
[2019-10-02] MEDS ORDERED: BuPROPion XL (24 HR) 150 MG TABLET PO SCH (21:00)
[2019-10-02] MEDS ORDERED: Metoprolol XL (24 HR) Succ 25 MG TAB.ER.24H PO SCH (21:00)
[2019-10-02] MEDS ORDERED: Cholecalciferol (D-3) 1,000 UNIT (25MCG) TABLET PO SCH (21:00)
== END 2019-10-02 13:35 | disposition other institution (70) ==
LOC: EMEROOARM 02:31 → 1ANU 07:23 → INTOOBSV 07:23 → 1ANU 08:37
PROVIDERS: ADMIT Psychiatry & Neurology Psychiatry; ATTEND Psychiatry & Neurology Psychiatry

== ENCOUNTER 2019-10-02 12:03 | Inpatient (IN) ==
[2019-10-02] MEDS ORDERED: Ondansetron 4 MG/2 ML VIAL IVP PRN (12:26)
[2019-10-02] MEDS ORDERED: Acetylcysteine 5,000 MG in D5% in Water 500 ML IVC ONE (12:30)
[2019-10-02] MEDS ORDERED: Acetylcysteine 10,000 MG in D5% in Water 1,000 ML IVC ONE ×2 (16:30→20:00)
[2019-10-02] MEDS ORDERED: Ibuprofen 400 MG TABLET PO ONE (20:03)
[2019-10-03 04:17] LABS: Hematocrit 38.6 % (35.3-44.9); Hemoglobin 12.3 g/dL (11.5-15.4); Mean Corpuscular HGB Conc 31.9 g/dL (31.6-35.5); Mean Corpuscular Hemoglobin 28.4 pg (28.0-33.3); Mean Corpuscular Volume 89.1 fL (83.0-100.0); Mean Platelet Volume 10.2 fL (9.4-12.4); Platelet Count 286 K/mcL (140-400); Red Blood Count 4.33 M/mcL (3.82-4.97); Red Cell Distribution Width 13.8 % (11.5-14.5); White Blood Count 10.8 K/mcL (4.3-11.1)
[2019-10-03 04:23] LABS: INR 1.3; Prothrombin Time 14.6 Seconds (9.4-12.1)
[2019-10-03 04:35] LABS: Alanine Aminotransferase 9 Units/L (7-52); Albumin 3.8 g/dL (3.5-5.7); Albumin/Globulin Ratio 1.6 (1.1-2.2); Alkaline Phosphatase 53 Units/L (34-104); Aspartate Amino Transferase 8 Units/L (13-39); BUN/Creatinine Ratio 25 (6-26); Bilirubin,Indirect 0.2 mg/dL (0.0-1.0); Bilirubin,Total 0.2 mg/dL (0.3-1.0); Blood Urea Nitrogen 17 mg/dL (6-20); Calcium 8.8 mg/dL (8.6-10.3); Carbon Dioxide 24 mEq/L (23-29); Chloride 106 mEq/L (98-107); Globulin 2.4 g/dL (2.4-3.5); Glucose 141 mg/dL (70-105); Magnesium 1.8 mg/dL (1.6-2.6); Osmolality,Calculated 292 (280-300); Potassium 3.5 mEq/L (3.5-5.1); Sodium 139 mEq/L (136-145); Total Protein 6.2 g/dL (6.4-8.9); eGFR For African Americans > 60 (> 60); eGFR For Non-African Americans > 60 (> 60)
[2019-10-03 07:52] VITALS: BP 107/71
[2019-10-03] MEDS ORDERED: Metoprolol XL (24 HR) Succ 25 MG TAB.ER.24H PO SCH (09:00)
[2019-10-03] MEDS ORDERED: BuPROPion XL (24 HR) 150 MG TABLET PO SCH (09:00)
[2019-10-03 11:19] LABS: Acetaminophen < 10 mcg/mL (10-20); Alanine Aminotransferase 8 Units/L (7-52); Aspartate Amino Transferase 8 Units/L (13-39)
== END 2019-10-03 12:00 | disposition home or self-care (01) | DRG 918 ==
LOC: PREOBSVTOIN 14:57 → 3BNU 15:06 → SUATTDRO 15:06
PROVIDERS: ADMIT Internal Medicine; ATTEND Internal Medicine